=== PATIENT | male | born 1935 ===

== ENCOUNTER 2021-06-16 18:11 | Emergency (ER) | payer OTHER ==
--- OUTSIDE RECORDS SUMMARY | 2021-06-16 18:18 | XMS REPORT | Continuity of Care Document ---
:[address] [facility] t Address [address] [place] [address] Dr. Esteban. [address] [place] [address] Care Team Providers Name Role Phone Blake Mihaela Primary Care Physician QUINTEN, Celeste Attending Clinician Unavailable Quinten AMATO, A Attending Clinician Doctor Unassigned, Name Attending Clinician Unavailable Only, Test Attending Clinician Unavailable Pob, Lab Main Attending Clinician Unavailable QUINTEN, Celeste Admitting Clinician Unavailable Quinten AMATO, A Admitting Clinician Payers Payer Name Policy Type Policy Number Effective Date Expiration Date S katie FLAKITO/TASHA [id number] 2020 00:00:00 [employer] AD[employer] CHOICE PPO Problems This patient has no known problems. Allergies, Adverse Reactions, Alerts Allergy Allergy Status Severity Reaction(s) Onset Inactive Treating Comm ents Source Name Type Date Date Clinician NO KNOWN Drug Active Univers ALLERGIE Class ity of S [facility] Social History Social Habit Start Date Stop Date Quantity Comments Source Exposure to Not sure [facility] SARS-CoV-2 (event) Medica l Branch Tobacco use and 2021-05-20 2021-05-20 Never used [facility] exposure 00:00:00 00:00:00 [facility] Sex Assigned At [birth year] [facility] 00:00:00 00:00:00 [facility] Smoking Status Start Date Stop Date Source Unknown if ever smoked [facility] Never smoker [facility] Medications Ordered Filled Start Stop Current Ordering Indication Dosage Frequency Signature Comments Components Source Medication Medication Date Date Medication? Clinician (SIG) Name Name water for 2020-07 Yes PRN, Univers irrigation 07-22 Starting ity o f irrigation 17:20: on Thu [place] solution 00 05/22/21 Medical at 1120, Branch Until Discontinu ed, Routine, Intra-op water for 2020-07- No PRN, Univers irrigation 07-22 Starting ity of irrigation 17:20: 21:35 [place] solution 00 :56 05/22/21 Medical at 1120, Branch Until Thu05/22/21 at 1535, Routine, Intra-op sodium 2020-07 Yes PRN, Univers chloride 07-22 Starting ity of (NS) 17:19: on Thu [place] injection 05/22/21 Medica l at 1119, Branch Until Discontinu ed, Routine, Intra-op neomycin-po 2020-07 Yes [facility] l[facility]22 Starting ity of amethasone 17:19: on Thu [place] (MAXITROL) 00 05/22/21 Medic al 3.5 at 1119, Branch mg/g-10,000 Until unit/g-0.1 Discontinu % ed, ophthalmic Routine, ointment Intra-op sodium 2020-07- No PRN, Univers chloride 07-22 Starting ity of (NS) 17:19: 21:35 on Thu [place] injection 00 :56 05/22/21 Medica l at 1119, Branch Until Thu05/22/21 at 1535, Routine, Intra-op neomycin-po 2020-07- No PRN, [facility] lymyx[facility] 07-22 Starting ity of amethasone 17:19: 21:35 [place] (MAXITROL[place] 00 :56 05/22/21 Medic al 3.5 at 1119, Branch mg/g-10,000 Until Wed unit/g-0.1 05/22/21 % at 1535, ophthalmic Routine, ointment Intra-op Hyaluronida 2020-07 Yes PRN, Univer s se, Human 07-22 Starting ity of Recomb. 17:18: on Thu [place] (HYLENEX) 00 05/22/21 Medica l injection at 1118, Branch Until Discontinu ed, Routine, Intra-op Hyaluronida 2020-07- No PRN, Unive rs se, Human 07-22 Starting ity o f Recomb. 17:18: 21:35 on Thu (HYLENEX) 00 :56 05/22/21 Medica l injection at 1118, Branch Until Thu05/22/21 at 1535, Routine, Intra-op eye block 2020-07 Yes PRN, Univers syringe 07-22 Starting ity o f mL 17:17: on Thu 00 05/22/21 Medical at 1117, Branch Until Discontinu ed, Intra-op EPINEPHrine 2020-07 Yes PRN, Univer s 1:1,000 (07-22 Starting ity o f mg/mL) 17:17: on Thu (ADRENALIN) 00 05/22/21 Medi fermín injection at 1117, Branch Until Discontinu ed, Routine, Intra-op eye block 2020-07- No PRN, Univers syringe 11 07-22 Starting ity of mL 17:17: 21:35 on Thu 00 :56 05/22/21 Medical at 1117, Branch Until Thu05/22/21 at 1535, Intra-op EPINEPHrine 2020-07- No PRN, Unive rs 1:1,000 (07-22 Starting ity of mg/mL) 17:17: 21:35 on Thu (ADRENALIN) 00 :56 05/22/21 Medi fermín injection at 1117, Branch Until Thu05/22/21 at 1535, Routine, Intra-op DUOVISC 2020-07 Yes PRN, Univers (DUOVISC 07-22 Starting ity of VISCO 17:16: on Thu ELASTIC) 3 00 05/22/21 Medic al %-4 %(0.5 at 1116, Branch mL) 1 % Until (0.55 mL) Discontinu intraocular ed, injection Routine, Intra-op dexamethaso 2020-07 Yes PRN, Univer s ne 07-22 Starting ity of (DECADRON 17:16: on Thu PHOSPHATE) 00 05/22/21 Medic al injection at 1116, Branch Until Discontinu ed, Routine, Intra-op DUOVISC 2020-07- No PRN, Univers (DUOVISC 07-22 Starting ity of VISCO 17:16: 21:35 on Thu [place] ELASTIC) 3 00 :56 05/22/21 Medic al %-4 %(0.5 at 1116, Branch mL) 1 % Until Thu (0.55 mL) 05/22/21 intraocular at 1535, injection Routine, Intra-op dexamethaso 2020-07- No PRN, Unive rs ne 07-22 Starting ity of (DECADRON 17:16: 21:35 on Thu PHOSPHATE) 00 :56 05/22/21 Medic al injection at 1116, Branch Until Thu05/22/21 at 1535, Routine, Intra-op ceFAZolin 2020-07 Yes PRN, Univers (ANCEF) 07-22 Starting ity of injection 17:15: on Thu 00 05/22/21 Medical at 1115, Branch Until Discontinu ed, ANANTH, Intra-op carbachoL 2020-07 Yes PRN, Univers (MIOSTAT) 07-22 Starting ity of 0.01 % 17:15: on Thu intraocular 00 05/22/21 Medi fermín injection at 1115, Branch Until Discontinu ed, Routine, Intra-op ceFAZolin 2020-07- No PRN, Univers (ANCEF) 07-22 Starting ity of injection 17:15: 21:35 on Thu 00 :56 05/22/21 Medical at 1115, Branch Until Thu05/22/21 at 1535, ANANTH, Intra-op carbachoL 2020-07- No PRN, Univers (MIOSTAT) 07-22 Starting ity o f 0.01 % 17:15: 21:35 on Thu intraocular 00 :56 05/22/21 Medi fermín injection at 1115, Branch Until Thu05/22/21 at 1535, Routine, Intra-op balanced 2020-07 Yes PRN, Univers salt irrig 07-22 Starting ity o f soln comb1 17:01: on Thu (BSS PLUS) 00 05/22/21 Medic al ophthalmic at 1101, Branc h solution Until 500 mL bag Discontinu ed, Routine, Intra-op balanced 2020-07- No PRN, Univers salt irrig 07-22 Starting ity of soln comb1 17:01: 21:35 [place] Thu [place] (BSS PLUS) 00 :56 05/22/21 Medic al ophthalmic at 1101, Branc h solution Until Thu 500 mL bag 05/22/21 at 1535, Routine, Intra-op cyclopent 2020-07- No .5mL 0.5 mL, Univ ers 1%-tropic 07-22 Right Eye, ity of 1%-phenyl 17:00: 17:19 ONCE, 1 [place] 2.5%-ketor 00 :00 dose, On Medic al 0.5% Wed Branch ophthalmic 05/22/21 solution at 1100, syringe 0.5 Routine, mL DSU Pre-op lactated 2020-07- No 1000mL at 42 Unive rs ringers IV 07-22 11-17 mL/hr, ity of infusion 17:00: 17:18 1,000 mL, Gustavo as 1,000 mL 00 :00 IV Medical Infusion, Branch ONCE, 1 dose, On Thu05/22/21 at 1100, Routine, DSU Pre-op cyclopent 2020-07- No .5mL 0.5 mL, Univ ers 1%-tropic 07-22 Right Eye, ity of 1%-phenyl 17:00: 17:19 ONCE, 1 [place] 2.5%-ketor 00 :00 dose, On Medic al 0.5% [facility] Branch ophthalmic 05/22/21 solution at 1100, syringe 0.5 Routine, mL DSU Pre-op lactated 2020-07- No 1000mL at 42 Unive rs ringers IV 07-22 11-17 mL/hr, ity of infusion 17:00: 17:18 1,000 mL, Gustavo as 1,000 mL 00 :00 IV Medical Infusion, Branch ONCE, 1 dose, On Thu05/22/21 at 1100, Routine, DSU Pre-op aspirin 81 2020-07 Yes 81mg Take 81 mg U nivers mg chewable 1-17 by mouth ity of tablet 13:35: daily. [address] aspirin 81 2020-07 Yes 81mg Take 81 mg U nivers mg chewable 1-17 by mouth ity of tablet 13:35: daily. [address] aspirin 81 2020-07 Yes 81mg Take 81 mg U nivers mg chewable 1-17 by mouth ity of tablet 13:35: daily. [place] [facility] Branch aspirin 81 2020-07 Yes 81mg Take 81 mg U nivers mg chewable 1-15 by mouth ity of tablet 09:16: daily. [place] [facility] Branch finasteride 2020-07 Yes Univer s 5 mg tablet 1-02 ity of 00:00: [place] [facility] finasteride 2020-07 Yes Univer s 5 mg tablet 1-02 ity of 00:00: [place] [facility] finasteride 2020-07 Yes Univer s 5 mg tablet 1-02 ity of 00:00: [place] [facility] finasteride 2020-07 Yes Univer s 5 mg tablet 1-02 ity of 00:00: [place] [facility] FARXIGA 5 2020-07 Yes Univers mg tablet 0-26 ity of [facility]:00: [place] [facility] Univers mg tablet 0-26 ity of [facility]:00: [place] [facility] 2020-07 Yes Univers mg tablet 0-26 ity of 00:00: [place] [facility] 2020-07 Yes Univers mg tablet 0-26 ity of 00:00: [place] [facility] doxazosin 4 2020-07 Yes Univer s mg tablet 0-15 ity of 00:00: [place] [facility] benazepriL 2020-07 Yes Univers 5 mg tablet 0-15 ity of 00:00: [place] [facility] doxazosin 4 2020-07 Yes Univer s mg tablet 0-15 ity of 00:00: [place] [facility] [place] benazepriL 2020-07 Yes Univers 5 mg tablet 0-15 ity of 00:00: [place] [facility] doxazosin 4 2020-07 Yes Univer s mg tablet 0-15 ity of 00:00: [place] [facility] benazepriL 2020-07 Yes Univers 5 mg tablet 0-15 ity of 00:00: [place] [facility] doxazosin 4 2020-07 Yes Univer s mg tablet 0-15 ity of 00:00: [place] [address] Medical [place] benazepriL 2020-07 Yes Univers 5 mg tablet 0-15 ity of 00:00: [place] [facility] Vital Signs Vital Name Observation Time Observation Value Comments Source Heart rate 2021-05-22 19:16:00 50 /min Universi ty of [facility] Branch Respiratory rate 2021-05-22 19:16:00 14 /min Univ ersity of [facility] Branch Oxygen saturation in 2021-05-22 19:16:00 98 /min University of Arterial blood by [facility] Pulse oximetry Branch Systolic blood 2021-05-22 19:14:00 146 mm[Hg] Univer sity of pressure [facility] Branch Diastolic blood 2021-05-22 19:14:00 91 mm[Hg] Unive rsity of pressure [facility] Body temperature 2021-05-22 19:03:00 36.39 Emily Univ ersity of [facility] Body height 2021-05-20 15:59:00 172.7 cm Universi ty of [facility] Body weight 2021-05-20 15:59:00 68 kg Universi ty of [facility] BMI 2021-05-20 15:59:00 22.80 kg/m2 Universi ty of [facility] Systolic blood 2021-05-22 17:03:00 163 mm[Hg] Univer sity of [facility] Diastolic blood 2021-05-22 17:03:00 76 mm[Hg] Unive rsity of [facility] Heart rate 2021-05-22 17:03:00 55 /min Universi ty of [facility] Body temperature 2021-05-22 17:03:00 36.17 Emily Univ ersity of [facility] Respiratory rate 2021-05-22 17:03:00 21 /min Univ ersity of [facility] Oxygen saturation in 2021-05-22 17:03:00 99 /min University of Arterial blood by [facility] Pulse oximetry Branch Body height 2021-05-20 15:59:00 172.7 cm Universi ty of [place] [facility] Body weight 2021-05-20 15:59:00 68 kg Universi ty of [facility] Branch BMI 2021-05-20 15:59:00 22.80 kg/m2 Universi ty of [facility] Branch Procedures Procedure Date / Time Performing Source Performed Clinician PHACOEMULSIFICATION OF 2021-05-22 Miguel Shipleyer [place] of [place] CATARACT WITH INTRAOCULAR 18:25:00 [facility] LENS IMPLANT POCT GLUCOSE(AGE >30DAYS) 2021-05-22 Sandra Cunningham [facility] 17:22:00 Medical Branch POCT GLUCOSE(AGE >30DAYS) 2021-05-22 Sandra Cunningham [facility] 17:22:00 Medical Branch POCT GLUCOSE (AUTOMATED) 2021-05-22 Miguel Shipley [facility] 17:15:00 Medical Branch POCT GLUCOSE (AUTOMATED) 2021-05-22 Miguel Shipley [facility] 17:15:00 Medical Branch PATIENT QUESTIONNAIRE 2021-05-22 Doctor Unassigned, [facility] 06:01:00 [place] [facility] ASSIGNMENT OF BENEFITS 2021-05-13 Doctor Unassigned, [facility] 16:40:49 [place] [facility] EXTERNAL PROVIDER RECORDS 2021-04-24 Doctor Unassigned, [facility] 05:01:00 [place] [facility] EXTERNAL PROVIDER RECORDS 2021-04-24 Doctor Unassigned, [facility] 05:01:00 [place] [facility] Encounters Start End Encounter Admission Attending Care Care Encounter Source Date/Time Date/Time Type Type Clinicians Facility Department ID 2021-06-05 Outpatient R [facility] OPH [id number] Univers 16:30:41 [facility] 2021-05-22 2021-05-22 Outpatient R [facility] OPH [id number] Univers 10:48:00 13:33:00 [facility] 2021-05-22 2021-05-22 [facility] [id number] Univers 10:48:00 13:33:00 Encounter Miguel QUINTEROS [id number] ity [facility] [id number] [place] SUR[place] [id number] [facility] 071 Branch 2021-05-22 2021-05-22 Surgery [facility] [id number] Univers 12:12:00 12:51:00 Miguel QUINTEROS [id number] ity of [id number] [place] SUR[place]ICAL [id number] [facility] 020 Branch 2021-05-22 2021-05-22 Orders Doctor MATT [id number] Univers 00:00:00 00:00:00 Only Unassigned, DARSHAN [id number] ity of [place] [facility] [id number] [facility] [id number] [facility] 009 Branch 2021-05-21 2021-05-21 Outpatient R [facility] [id number] Univers 08:45:00 08:45:00 [id number] ity [facility] 2021-05-21 2021-05-21 Outpatient R [facility] [id number] Univers 08:45:00 08:45:00 ity of [facility] 2021-05-20 2021-05-20 Outpatient R [facility] [id number] Univers 10:30:00 10:30:00 [id number] ity [facility] 2021-05-20 2021-05-20 Outpatient R QUINTEN [facility] [id number] Univers 10:30:00 10:30:00 MIGUEL cortes [facility] 2021-05-20 2021-05-20 Laboratory Only, Adc Test [facility] [id number] Univers 09:25:46 09:40:46 Only Miguel Shipley [id number] [facility] [id number] [facility] [id number] [facility] [address] [place] 2021-05-13 2021-05-13 Outpatient R QUINTEN [facility] [id number] Univers 11:45:00 11:45:00 MIGUEL cortes [facility] 2021-05-13 2021-05-13 Tax Examiner Birgit, Adc Lab Main [facility] [id number] Univers 10:40:00 10:55:00 Visit Miguel Shipley [id number] 0 ity of [place] [id number] [facility] [id number] In [address] 2021-05-13 2021-05-13 Orders Doctor GUTIERREZ [id number] Univers 00:00:00 00:00:00 Only Unassigned, DARSHAN [id number] ity of [place] [facility] [id number] Gust[place] as [id number] [address] Results Test Description Test Time Test Comments Results Result Comments Source POCT Glucose 2021-05-22 17:22:00 Test Item Value Reference Range Interpretation Comme nts POCT Glu (age>30days) (test code = 3342) 135 mg/dL 70-110 A Lab Interpretation (test code = 44517-3) Abnormal [facility] [id number] 17:22:00 Test Item Value Reference Range Interpretation Comments POCT Glu (age>30days) (test code = 135 mg/dL 70-110 A 3342) Lab Interpretation (test code = Abnormal 97836-2) [facility] GLUCOSE (AUTOMATED)2021-05-22 17:18:13 Test Item Value Reference Range Interpretation Comments POCT GLU (test code = 2115685993) 135 mg/dL 70-110 H Lab Interpretation (test code = Abnormal 24511-2) [facility] GLUCOSE (AUTOMATED)2021-05-22 17:18:13 Test Item Value Reference Range Interpretation Comments POCT GLU (test code = 4583634660) 135 mg/dL 70-110 H Lab Interpretation (test code = Abnormal 97230-4) [facility]
--- NOTE | 2021-06-16 19:07 | RAD REPORT ---
EXAM DESCRIPTION: RAD - Chest Single View - 06/16/2021 6:53 pm CLINICAL HISTORY: SOB COMPARISON: February 2018 TECHNIQUE: AP portable chest image was obtained 06/16/2021 6:53 pm . FINDINGS: Lung volumes are low. No focal lung parenchymal process seen. Hilar regions are normal. He art and vasculature are normal. No measurable pleural effusion and no pneumothorax. No acute bony abn ormality seen. No acute aortic findings suspected. IMPRESSION: No acute cardiopulmonary process. No significant change from comparison study.
[2021-06-16 19:14] LABS: Absolute Lymphocytes (CBC) 0.8 K/uL (0.7-4.9); Basophils % 0.4 % (0-1.3); Lymphocytes % 6.2 % (15.3-44.8); MPV 9.3 fL (7.6-11.3); Protime INR 1.09; RBC Red Blood Cell Count 5.04 M/uL (4.33-5.43)
[2021-06-16 19:45] LABS: Albumin 3.4 g/dL (3.4-5.0); Bilirubin Direct 0.2 mg/dL (0-0.2); Bilirubin Total 0.6 mg/dL (0.2-1.0); Potassium 5.1 mmol/L (3.5-5.1); Protein, Total 7.2 g/dL (6.4-8.2)
[2021-06-16 19:47] LABS: Troponin (Emerg Dept Use Only) 24.1 ng/mL (0.0-0.045)
[2021-06-16] MEDS ORDERED: HEPARIN 5000 UNIT/ML 1 ML VIAL ONE (20:26)
[2021-06-16] MEDS ORDERED: ONDANSETRON 4 MG/2 ML VIAL ONE (20:26)
[2021-06-16] MEDS ORDERED: METOPROLOL TAR 50 MG TAB ONE (20:26)
[2021-06-16] MEDS ORDERED: ASPIRIN 81 MG CHEWABLE TABLET ONE (20:26)
[2021-06-16] MEDS ORDERED: MORPHINE 2 MG/ML SYR ONE (20:26)
[2021-06-16] MEDS ORDERED: HEPARIN/D5W 25,000 UNIT/500 ML BAG IV ONE (20:27)
[2021-06-16] MEDS ORDERED: FAMOTIDINE 20 MG/2 ML VIAL IV ONE (20:27)
[2021-06-16] MEDS ORDERED: CLOPIDOGREL 75 MG TABLET ONE (20:27)
--- NOTE | 2021-06-16 20:32 | ER ---
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 Coronavirus screen: Client presents with at least one sign or symptom that may indicate coronavirus-19. Ebola Screen: Patient negative for fever greater than or equal to 101.5 degrees Fahrenheit, and additional compatible Ebola Virus Disease symptoms Patient denies exposure to infectious person. Patient denies travel to an Ebola-affected area in the 21 days before illness onset. No symptoms or risks identified at this time. Initial Sepsis Screen: Does the patient meet any 2 criteria? No. Patient's initial sepsis screen is negative. Does the patient have a suspected source of infection? No. Patient's initial sepsis screen is negative. Risk Assessment: Do you want to hurt yourself or someone else? Patient reports no desire to harm self or others. Onset of symptoms was June 09, 2021. 18:29 Method Of Arrival: Wheelchair iw 18:29 Acuity: KENZIE 3 iw Historical: - Allergies: 18:32 No Known Allergies; iw - PMHx: 18:31 COPD; Diabetes - NIDDM; Hypertension; Hyperlipidemia; SBO; SMALL BOWEL OBSTRUCTION; iw Gout; - Immunization history:: Client reports receiving the 2nd dose of the Covid vaccine. - Social history:: Smoking status: Patient denies any tobacco usage or history of. Screenin:00 Abuse screen: Denies threats or abuse. Nutritional screening: No deficits noted. bb Tuberculosis screening: No symptoms or risk factors identified. Fall Risk None identified. Assessment: 20:00 General: Appears in no apparent distress. slender, Behavior is calm, cooperative. Pain: bb Denies pain. Neuro: Level of Consciousness is awake, alert, obeys commands, Oriented to person, place, time, situation. Cardiovascular: Capillary refill < 3 seconds Patient's skin is warm and dry. Rhythm is STEMI. Respiratory: Airway is patent Respiratory effort is even, unlabored, Breath sounds are clear bilaterally. GI: Abdomen is non-distended. Derm: Skin is pink, warm \T\ dry. Musculoskeletal: Circulation, motion, and sensation intact. 20:30 Reassessment: Patient is alert, oriented x 3, equal unlabored respirations, skin bb warm/dry/pink. life flight at bedside for transfer of pt to [place], IV site intact, heparin infusing, family at bedside. 20:45 Reassessment: report called to Karthik DICKEY at [place] ED. bb Vital Signs: 18:29 BP 141 / 67; Pulse 96; Resp 16; Temp 98.0; Pulse Ox 98% on R/A; iw 20:12 BP 164 / 77; Pulse 80; Resp 18; Temp 98.2; Pulse Ox 99% ; lt3 20:20 Weight 65.3 kg (M); bb 20:45 BP 149 / 75; Pulse 87; Resp 20 S; Pulse Ox 97% on R/A; bb ED Course: 18:17 Patient arrived in ED. am2 18:18 Deo Lozano MD is Private Physician. am2 18:31 Triage completed. iw 18:33 Arm band placed on. iw 18:45 Initial lab(s) drawn, by me, sent to lab. Inserted saline lock: 22 gauge in right dh3 forearm, using aseptic technique. Blood collected. 18:53 XRAY Chest (1 view) In Process Unspecified. EDMS 20:00 Patient has correct armband on for positive identification. Placed in gown. Bed in low bb position. Call light in reach. Side rails up X2. Adult w/ patient. engine monitor on. Pulse ox on. NIBP on. Warm blanket given. 20:00 No provider procedures requiring assistance completed. bb 20:07 initiated a transfer with Angeli Cloud from [facility]. mw2 20:11 Mayito Moeller MD is Attending Physician. alice 20:13 EKG done, by ED staff, reviewed by Mayito Moeller MD. lt3 20:26 [facility] denied due to capacity. mw2 20:27 initiated a transfer with Fernandez Gonzalez from [facility]. mw2 20:[address] Moeller with Dr. Osborn from [facility]. mw2 20:40 Patient transferred, IV remains in place. bb 20:41 administrative approval given by Fernandez Gonzalez/ patient has been accepted to [address] to the Fitting Supervisor/ Dr. El accepted the patient in transfer/ report to be called to [phone]. 21:06 Brii Mcdonnell, RN is Primary Nurse. bb Administered Medications: 20:30 Drug: Aspirin Chewable Tablet 324 mg Route: PO; bb 21:00 Follow up: Response: No adverse reaction bb 20:30 Drug: PlaVIX (clopidogrel) 300 mg Route: PO; bb 21:00 Follow up: Response: No adverse reaction bb 20:30 Drug: Insulin Regular Human 5 units {Co-Signature: lp1 (Nava Campbell RN).} Route: IVP; bb Site: right forearm; 21:00 Follow up: Response: No adverse reaction bb 20:32 Drug: Lopressor (metoprolol TARTRATE) 50 mg Route: PO; bb 21:00 Follow up: Response: No adverse reaction bb 20:33 Drug: Pepcid (famotidine) 20 mg Route: IVP; Site: right forearm; bb 21:00 Follow up: Response: No adverse reaction bb 20:35 Drug: Zofran (Ondansetron) 4 mg Route: IVP; Site: right forearm; bb 21:00 Follow up: Response: No adverse reaction bb 20:40 Drug: Heparin (CO-Bolus No thrombolytic) - HEParin 60 units/kg {Co-Signature: lp1 cande (Nava Campbell RN).} Route: IVP; Site: right forearm; 21:00 Follow up: Response: No adverse reaction bb 20:41 Drug: Heparin (CO Drip) 12 units/kg/hr - (HEParin 07237 units, D5W 500 ml) bb {Co-Signature: lp1 (Nava Campbell RN).} Route: IV; Rate: calculated rate; Site: right forearm; 21:00 Follow up: IV Status: Infusion continued upon transfer bb 21:02 Not Given (Patient Refused): morphine 2 mg IVP once; (PAIN>8) RASS on ADMN: Combtv4, bb Very Agttd3, Agttd2, Rstlss1, AlertClm0, Drwsy-1, LtSdtn-2, ModSdtn-3, DpSdtn-4, UnArsble-5 x2 06/17 02:52 Not Given (Physician Discretion): LanTUS (insulin glargine) 25 units Sub-Q once bb 02:52 Not Given (Physician Discretion): Lipitor (atorvastatin) 40 mg PO once bb 02:52 Not Given (Physician Discretion): NS 0.9% 500 ml IV at bolus once bb 02:52 Not Given (Physician Discretion): NS 0.9% 1000 ml IV at 125 ml/hr continuous bb Outcome: 06/16 20:31 ER care complete, transfer ordered by . [facility] 20:40 Condition: stable bb 21:10 Transferred by helicopter to [facility], Transfer form completed. X-rays sent bb w/ patient. 21:11 Patient left the ED. bb Signatures: Dispatcher [employer] EDMS Mayito Moeller MD MD cha Ballard, Brenda, RN RN Stephanie Morataya, RN RN iw Soraya Rosas Deanna 3 Marta Mckeon 2 Heather Key 3 Nava Campbell RN lp1 Corrections: (The following items were deleted from the chart) 18:32 18:29 Chief complaint: Patient's son or daughter states: decreased appetite X 1 week, iw didn't eat anything today, SOB today, feels foggy, denies fever or chills, no vomiting or diarrhea, denies urine symptoms iw
--- NOTE | 2021-06-16 20:32 | EDPHYS ---
Physician Documentation [facility] Name: Woodrow Mckeon Age: 85 yrs Sex: Male : 1935 Arrival Date: 06/16/2021 Time: 18:17 Bed 10 Private MD: Deo Lozano ED Physician Mayito Moeller HPI: 06/16 20:21 This 85 yrs old Male presents to ER via Wheelchair with complaints of alice Breathing Difficulty, Decreased Appetite. 20:21 The patient has shortness of breath at rest, with light activity. Onset: The alice symptoms/episode began/occurred this morning. Duration: The symptoms are continuous, and are unchanged since they started. The patient's shortness of breath is aggravated by nothing, is alleviated by nothing. Associated signs and symptoms: Pertinent positives: chest pain, non-productive cough. Severity of symptoms: At their worst the symptoms were mild in the emergency department the symptoms are unchanged. The patient has not experienced similar symptoms in the past. Historical: - Allergies: 18:32 No Known Allergies; iw - PMHx: 18:31 COPD; Diabetes - NIDDM; Hypertension; Hyperlipidemia; SBO; SMALL BOWEL OBSTRUCTION; iw Gout; - Immunization history:: Client reports receiving the 2nd dose of the Covid vaccine. - Social history:: Smoking status: Patient denies any tobacco usage or history of. ROS: 20:23 Constitutional: Negative for fever, chills, and weight loss, Eyes: Negative for injury, alice pain, redness, and discharge, ENT: Negative for injury, pain, and discharge, Neck: Negative for injury, pain, and swelling, Abdomen/GI: Negative for abdominal pain, nausea, vomiting, diarrhea, and constipation, Back: Negative for injury and pain, : Negative for injury, bleeding, discharge, and swelling, MS/Extremity: Negative for injury and deformity, Skin: Negative for injury, rash, and discoloration, Neuro: Negative for headache, weakness, numbness, tingling, and seizure, Psych: Negative for depression, anxiety, suicide ideation, homicidal ideation, and hallucinations, Allergy/Immunology: Negative for hives, rash, and allergies, Endocrine: Negative for neck swelling, polydipsia, polyuria, polyphagia, and marked weight changes, Hematologic/Lymphatic: Negative for swollen nodes, abnormal bleeding, and unusual bruising. 20:23 Cardiovascular: Positive for chest pain, of the anterior aspect of left upper chest and left breast. 20:23 Respiratory: Positive for shortness of breath, at rest. Exam: 20:23 Constitutional: This is a well developed, well nourished patient who is awake, alert, alice and in no acute distress. Head/Face: Normocephalic, atraumatic. Eyes: Pupils equal round and reactive to light, extra-ocular motions intact. Lids and lashes normal. Conjunctiva and sclera are non-icteric and not injected. Cornea within normal limits. Periorbital areas with no swelling, redness, or edema. ENT: Nares patent. No nasal discharge, no septal abnormalities noted. Tympanic membranes are normal and external auditory canals are clear. Oropharynx with no redness, swelling, or masses, exudates, or evidence of obstruction, uvula midline. Mucous membranes moist. Neck: Trachea midline, no thyromegaly or masses palpated, and no cervical lymphadenopathy. Supple, full range of motion without nuchal rigidity, or vertebral point tenderness. No Meningismus. Chest/axilla: Normal chest wall appearance and motion. Nontender with no deformity. No lesions are appreciated. Cardiovascular: Regular rate and rhythm with a normal S1 and S2. No gallops, murmurs, or rubs. Normal PMI, no JVD. No pulse deficits. Respiratory: Lungs have equal breath sounds bilaterally, clear to auscultation and percussion. No rales, rhonchi or wheezes noted. No increased work of breathing, no retractions or nasal flaring. Abdomen/GI: Soft, non-tender, with normal bowel sounds. No distension or tympany. No guarding or rebound. No evidence of tenderness throughout. Back: No spinal tenderness. No costovertebral tenderness. Full range of motion. Male : Normal genitalia with no discharge or lesions. Skin: Warm, dry with normal turgor. Normal color with no rashes, no lesions, and no evidence of cellulitis. MS/ Extremity: Pulses equal, no cyanosis. Neurovascular intact. Full, normal range of motion. Neuro: Awake and alert, GCS 15, oriented to person, place, time, and situation. Cranial nerves II-XII grossly intact. Motor strength 5/5 in all extremities. Sensory grossly intact. Cerebellar exam normal. Normal gait. Psych: Awake, alert, with orientation to person, place and time. Behavior, mood, and affect are within normal limits. Vital Signs: 18:29 BP 141 / 67; Pulse 96; Resp 16; Temp 98.0; Pulse Ox 98% on R/A; iw 20:12 BP 164 / 77; Pulse 80; Resp 18; Temp 98.2; Pulse Ox 99% ; lt3 20:20 Weight 65.3 kg (M); bb 20:45 BP 149 / 75; Pulse 87; Resp 20 S; Pulse Ox 97% on R/A; bb MDM: 20:11 Patient medically screened. alice 20:24 Differential diagnosis: Anemia Bronchitis CHF exacerbation, abnormal EKG, acute alice myocardial infarction, anxiety, coronary artery disease chest wall pain, Cholelithiasis costochondritis, esophagitis, hiatal hernia, pancreatitis, pneumonia, pulmonary embolus, stable angina, unstable angina, Myocardial Infarction pneumonia, pulmonary edema, Pulmonary Embolism Unstable Angina. Antibiotic administration: Not indicated. HEART Score: History: Moderately Suspicious (1), ECG: Significant ST-deviation (2), Age: > or = 65 years (2), Risk Factors: > or = 3 Risk factors for atherosclerotic disease (2), [Hypercholesterolemia] [Hypertension] [DM] [+ Family HX] Troponin: > or = 3 x Normal Limit (2). The patient was given aspirin in the Emergency Department. The patient's Wells Deep Vein Thrombosis Score was calculated as follows: Total Score: 0. This patient was found to be at low risk for a deep vein thrombosis by using the Well's assessment criteria No Risks (0 Pts) Total Score: 0-2 Pts- Low Risk. The patient's pulmonary embolism risk score was calculated as follows: Total Score: 0-2 points. This patient was found to be at low risk for a pulmonary embolism by using the Well's assessment criteria Total Score: 0-2 points. This patient was found to be at low risk for a pulmonary embolism by using the Well's assessment criteria. BRIAN Risk Score: 1 - patient's age is greater or equal to 65 years, 1 - Three or more CAD risk factors, 1- Known CAD, 1 - ASA use in past 7 days, 1 - Recent [<24hrs] Severe Angina, 1 - Elevated Cardiac Markers, 1 - ST deviation >0.5mm, TOTAL SCORE = 7. Immunization status: Pneumococcal vaccine: Influenza vaccine: Data reviewed: vital signs, nurses notes, lab test result(s), EKG, radiologic studies, plain films. Data interpreted: monitor car operator: rate is 80 beats/min, rhythm is regular, Pulse oximetry: on room air is 99 %. Test interpretation: by ED physician or midlevel provider: ECG, plain radiologic studies. 06/16 18:34 Order name: Basic Metabolic Panel 06/16 18:34 Order name: CBC with Diff; Complete Time: 20:15 06/16 18:34 Order name: LFT's 06/16 18:34 Order name: Magnesium iw 06/16 18:34 Order name: NT PRO-BNP 06/16 18:34 Order name: PT-INR; Complete Time: 20:15 06/16 18:34 Order name: Troponin (emerg Dept Use Only) 06/16 18:34 Order name: XRAY Chest (1 view); Complete Time: 20:15 06/16 20:52 Order name: Lipase EDNJ 06/16 18:34 Order name: EKG; Complete Time: 18:35 06/16 18:34 Order name: Cardiac monitoring; Complete Time: 20:13 06/16 18:34 Order name: EKG - Nurse/Tech; Complete Time: 20:13 06/16 18:34 Order name: IV Saline Lock; Complete Time: 18:47 06/16 18:34 Order name: Labs collected and sent; Complete Time: 18:48 06/16 18:34 Order name: O2 Per Protocol; Complete Time: 20:13 06/16 18:34 Order name: O2 Sat Monitoring; Complete Time: 20:13 iw Administered Medications: 20:30 Drug: Aspirin Chewable Tablet 324 mg Route: PO; bb 21:00 Follow up: Response: No adverse reaction bb 20:30 Drug: PlaVIX (clopidogrel) 300 mg Route: PO; bb 21:00 Follow up: Response: No adverse reaction bb 20:30 Drug: Insulin Regular Human 5 units {Co-Signature: lp1 (Nava Campbell RN).} Route: IVP; bb Site: right forearm; 21:00 Follow up: Response: No adverse reaction bb 20:32 Drug: Lopressor (metoprolol TARTRATE) 50 mg Route: PO; bb 21:00 Follow up: Response: No adverse reaction bb 20:33 Drug: Pepcid (famotidine) 20 mg Route: IVP; Site: right forearm; bb 21:00 Follow up: Response: No adverse reaction bb 20:35 Drug: Zofran (Ondansetron) 4 mg Route: IVP; Site: right forearm; bb 21:00 Follow up: Response: No adverse reaction bb 20:40 Drug: Heparin (AK-Bolus No thrombolytic) - HEParin 60 units/kg {Co-Signature: lp1 bb (Nava Campbell RN).} Route: IVP; Site: right forearm; 21:00 Follow up: Response: No adverse reaction bb 20:41 Drug: Heparin (AK Drip) 12 units/kg/hr - (HEParin 52330 units, D5W 500 ml) bb {Co-Signature: lp1 (Nava Campbell RN).} Route: IV; Rate: calculated rate; Site: right forearm; 21:00 Follow up: IV Status: Infusion continued upon transfer bb 21:02 Not Given (Patient Refused): morphine 2 mg IVP once; (PAIN>8) RASS on ADMN: Combtv4, bb Very Agttd3, Agttd2, Rstlss1, AlertClm0, Drwsy-1, LtSdtn-2, ModSdtn-3, DpSdtn-4, UnArsble-5 x2 06/17 02:52 Not Given (Physician Discretion): LanTUS (insulin glargine) 25 units Sub-Q once bb 02:52 Not Given (Physician Discretion): Lipitor (atorvastatin) 40 mg PO once bb 02:52 Not Given (Physician Discretion): NS 0.9% 500 ml IV at bolus once bb 02:52 Not Given (Physician Discretion): NS 0.9% 1000 ml IV at 125 ml/hr continuous bb Disposition Summary: 06/16/21 20:31 Transfer Ordered Transfer Location: [facility] alice Reason: Higher level of care alice Condition: Serious alice Problem: new alice Symptoms: have improved alice Accepting Physician: estrella Stoddard [facility](06/16/21 21:11) bb Diagnosis - ST elevation (STEMI) 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 EDMS EDMS 21:11 20:31 to Richi [facility] alice castellon
[2021-06-16] MEDS ORDERED: INSULIN -REGULAR HUMAN 50 UNIT/0.5 ML ML ONE (20:48)
[2021-06-16 21:18] VITALS: BP 164/77; TEMP 98.2; O2SAT 99
== END 2021-06-16 21:11 | disposition short-term general hospital (02) ==
LOC: ER 18:11
DX: I21.09 ST elevation (STEMI) myocardial infarction involving other coronary artery of anterior wall (principal); E11.22 Type 2 diabetes mellitus with diabetic chronic kidney disease; E11.65 Type 2 diabetes mellitus with hyperglycemia; I12.9 Hypertensive chronic kidney disease with stage 1 through stage 4 chronic kidney disease, or unspecified chronic kidney disease; N18.9 Chronic kidney disease, unspecified; R06.00 Dyspnea, unspecified
CPT/HCPCS: 96365; 93005; 85025; 80048; 36415; 83735; 85610; 80076; 84484; 83690; 83880; 71045; 96375; 99285; J1644 ×2; J2405; J2270

== ENCOUNTER 2021-07-08 19:25 | Inpatient (IN) | payer OTHER ==
--- OUTSIDE RECORDS SUMMARY | 2021-07-08 19:29 | XMS REPORT | Continuity of Care Document ---
:1935 Author Organization [facility] t Address [address] [place] [address] [address]. [address]eb[address] [place] [address] Care Team Providers Name Role Phone Mihaela LLOYD Primary Care Physician Unavailable Celeste ROBERTS Attending Clinician Unavailable DARIAN ROBERTS Attending Clinician Unavailable ALEJANDRA SKELTON Attending Clinician Unavailable Quinten AMATO, Celeste Attending Clinician Doctor Unassigned, Name Attending Clinician Unavailable Only, Test Attending Clinician Unavailable Pob, Lab Main Attending Clinician Unavailable Celeste ROBERTS Admitting Clinician Unavailable DHOBLE Admitting Clinician Unavailable ALEJANDRA SKELTON Admitting Clinician Unavailable Quinten AMATO, Celeste Admitting Clinician Payers Payer Name Policy Type Policy Number Effective Date Expiration Date Pablo wilson FLAKITO/TASHA [id number] 2020 00:00:00 [employer] ADV CHOICE PPO Problems This patient has no known problems. Allergies, Adverse Reactions, Alerts Allergy Allergy Status Severity Reaction(s) Onset Inactive Treating Comm ents Source Name Type Date Date Clinician NO KNOWN Drug Active Univers ALLERGIE Class ity of S [facility] Social History Social Habit Start Date Stop Date Quantity Comments Source Exposure to Not sure [facility] SARS-CoV-2 (event) Medica l Branch Tobacco use and 2021-05-20 2021-05-20 Never used [facility] exposure 00:00:00 00:00:00 [facility] Sex Assigned At [birth year] [facility] 00:00:00 00:00:00 Medical [place] Smoking Status Start Date Stop Date Source Unknown if ever smoked [facility] Branch Never smoker [facility] Medications Ordered Filled Start Stop Current Ordering [...] of (NS) 17:19: on Thu [place] injection 00 05/22/21 Medica l at 1119, Branch Until Discontinu ed, Routine, Intra-op neomycin-po 2020-07 Yes PRN, Univer s lymyxin-dex 07-22 Starting ity of amethasone [...] 1535, Routine, Intra-op neomycin-po 2020-07- No PRN, Unive rs lymyxin-dex 07-22 Starting ity of amethasone 17:19: 21[place]35 [place] ([place]OL[place] 00 :56 05/22/21 Medic al 3.5 at 1119, Branch mg/g-10,000 Until Wed unit/g-0.1 05/22/21 % at 1535, ophthalmic Routine, ointment Intra-op Hyaluronida 2020-07 Yes PRN, Univer s se, Human 07-22 Starting ity of Recomb. 17:18: on Thu (HYLENEX) 00 05/22/21 Medica l injection at 1118, Branch Until Discontinu ed, Routine, Intra-op Hyaluronida 2020-07- No PRN, Unive rs se, Human 07-22 Starting ity o f Recomb. 17:18: 21:35 on Thu (HYLENEX) 00 :56 05/22/21 Medica l injection at 1118, Branch Until Thu05/22/21 at 1535, Routine, Intra-op eye block 2020-07 Yes PRN, Univers syringe 11 07-22 Starting ity o f mL 17:17: on Thu05/22/21 Medical at 1117, Branch Until Discontinu ed, Intra-op EPINEPHrine 2020-07 Yes PRN, Univer s 1:1,000 (07-22 Starting ity o f mg/mL) 17:17: on Thu (ADRENALIN) 05/22/21 Medi fermín injection at 1117, Branch [...] Starting ity of VISCO 17:16: 21:35 on Wed [place] ELASTIC) 3 00 :56 05/22/21 Medic al %-4 %(0.5 at 1116, Branch mL) 1 % Until Thu (0.55 mL) 05/22/21 intraocular at 1535, injection Routine, Intra-op dexamethaso 2020-07- No PRN, Unive rs ne 07-22 Starting ity of (DECADRON 17:16: 21:35 on Thu [place] PHOSPHATE) 00 :56 05/22/21 Medic al injection at 1116, Branch Until Thu05/22/21 at 1535, Routine, Intra-op ceFAZolin 2020-07 Yes PRN, Univers (ANCEF) 07-22 Starting ity of injection 17:15: on Thu [place] 00 05/22/21 Medical at 1115, Branch Until Discontinu ed, ANANTH, Intra-op carbachoL 2020-07 Yes PRN, Univers (MIOSTAT) 07-22 Starting ity of 0.01 % 17:15: on Wed [place] intraocular 00 05/22/21 Medi fermín injection at 1115, Branch Until Discontinu ed, Routine, Intra-op ceFAZolin 2020-07- No PRN, Univers (ANCEF) 07-22 Starting ity of injection 17:15: 21:35 on Wed [place] 00 :56 05/22/21 Medical at 1115, Branch Until Thu05/22/21 at 1535, ANANTH, Intra-op carbachoL 2020-07- No PRN, Univers (MIOSTAT) 07-22 Starting ity o f 0.01 % 17:15: 21:35 on Thu [place] intraocular 00 :56 05/22/21 Medi fermín injection at 1115, Branch Until Thu05/22/21 at 1535, Routine, Intra-op balanced 2020-07 Yes PRN, Univers salt irrig 07-22 Starting ity o f soln comb1 17:01: on Thu [place] (BSS PLUS) 00 05/22/21 Medic al ophthalmic [...] 00 :00 dose, On Medic al 0.5% Thu Branch ophthalmic 05/22/21 solution at 1100, syringe [...] 00 :00 dose, On Medic al 0.5% Thu Branch ophthalmic 05/22/21 solution at 1100, syringe [...] Take 81 mg U nivers mg chewable -17 by mouth ity of tablet 13:35: daily. [address] aspirin 81 2020-07 Yes 81mg Take 81 mg U nivers mg chewable 1-17 by mouth ity of tablet 13:35: daily. [address] aspirin 81 2020-07 Yes 81mg Take 81 mg U nivers mg chewable 1-17 by mouth ity of tablet 13:35: daily. [place] 54 [facility] aspirin 81 2020-07 Yes 81mg Take 81 mg U nivers mg chewable 1-15 by mouth ity of tablet 09:16: daily. [place] 40 [facility] finasteride 2020-07 Yes Univer s 5 mg tablet 1-02 ity of 00:00: [place] [facility] finasteride 2020-07 Yes Univer s 5 mg tablet 102 ity of 00:00: [address] finasteride 2020-07 Yes Univer s 5 mg tablet 1-02 ity of 00:00: [address] finasteride 2020-07 Yes Univer s 5 mg tablet -02 ity of 00:00: [address] FARXIGA 5 2020-07 Yes Univers mg tablet 0-26 ity of 00:00: [address] 5 2020-07 Yes Univers mg tablet 0-26 ity of 00:00: [address] FARGA 5 2020-07 Yes Univers mg tablet 0-26 ity of 00:00: [address] FARXIGA 5 2020-07 Yes Univers mg tablet 0-26 ity of 00:00: [address] Branch doxazosin 4 2020-07 Yes Univer s mg tablet 0-15 ity of 00:00: [address] benazepriL 2020-07 Yes Univers 5 mg tablet 0-15 ity of 00:00: [place] [address] Medical Branch doxazosin 4 2020-07 Yes Univer s mg tablet 0-15 ity of 00:00: [place] [address] Medical Branch benazepriL 2020-07 Yes Univers 5 mg tablet 0-15 ity of 00:00: [place] [address] Medical Branch doxazosin 4 2020-07 Yes Univer s mg tablet 0-15 ity of 00:00: [place] [address] Medical Branch benazepriL 2020-07 Yes Univers 5 mg tablet 0-15 ity of 00:00: [address] doxazosin 4 2020-07 Yes Univer s mg tablet 0-15 ity of 00:00: [place] 00 Medical Branch benazepriL 2020-1 Yes Univers 5 mg tablet 0-15 ity of 00:00: [place] [address] Medical [place] Vital Signs Vital Name Observation Time Observation Value Comments Source Heart rate 2021-05-22 19:16:00 50 /min [facility] [place] [facility] Respiratory rate 2021-05-22 19:16:00 14 /min Univ ersity [facility] [place] [facility] Oxygen saturation in 2021-05-22 19:16:00 98 /min University of Arterial blood by [facility] Pulse oximetry Branch Systolic blood 2021-05-22 19:14:00 146 mm[Hg] Univer sity of pressure [place] [facility] [place] Diastolic blood 2021-05-22 19:14:00 91 mm[Hg] Unive rsity of pressure [facility] Body temperature 2021-05-22 19:03:00 36.39 Emily [facility] [place] [facility] Body height 2021-05-20 15:59:00 172.7 cm [facility] [place] [facility] Body weight 2021-05-20 15:59:00 68 kg [facility] [place] [facility] BMI 2021-05-20 15:59:00 22.80 kg/m2 [facility] [place] [facility] Systolic blood 2021-05-22 17:03:00 163 mm[Hg] Univer sity of pressure [place] [facility] Diastolic blood 2021-05-22 17:03:00 76 mm[Hg] Unive rsity of pressure [facility] Heart rate 2021-05-22 17:03:00 55 /min [facility] [place] [facility] Body temperature 2021-05-22 17:03:00 36.17 Emily [facility] [place] [facility] Respiratory rate 2021-05-22 17:03:00 21 /min Univ [facility] [place] [facility] Oxygen saturation in 2021-05-22 17:03:00 99 /min University of Arterial blood by [facility] Pulse oximetry Branch Body height 2021-05-20 15:59:00 172.7 cm [facility] [place] [facility] Body weight 2021-05-20 15:59:00 68 kg [facility] [place] [facility] BMI 2021-05-20 15:59:00 22.80 kg/m2 [facility] [place] [facility] Procedures Procedure Date / Time Performing Source Performed Clinician PHACOEMULSIFICATION OF 2021-05-22 Miguel Roberts [facility] CATARACT WITH INTRAOCULAR 18:25:00 Medica l Branch LENS IMPLANT POCT GLUCOSE(AGE >30DAYS) 2021-05-22 Sandra Cunningham [facility] 17:22:00 Medical Branch POCT GLUCOSE(AGE >30DAYS) 2021-05-22 Sandra Cunningham [facility] 17:22:00 Medical Branch POCT GLUCOSE (AUTOMATED) 2021-05-22 Miguel Roberts [facility] 17:15:00 Medical Branch POCT GLUCOSE (AUTOMATED) 2021-05-22 Miguel Roberts [facility] 17:15:00 Medical Branch PATIENT QUESTIONNAIRE 2021-05-22 Doctor Unassigned, [facility] 06:01:00 [place] [facility] ASSIGNMENT OF BENEFITS 2021-05-13 Doctor Unassigned, [facility] 16:40:49 [place] [facility] EXTERNAL PROVIDER RECORDS 2021-04-24 Doctor Unassigned, [facility] 05:01:00 [place] [facility] EXTERNAL PROVIDER RECORDS 2021-04-24 Doctor Unassigned, [facility] 05:01:00 [place] [facility] Encounters Start End Encounter Admission Attending Care Care Encounter Source Date/Time Date/Time Type Type Clinicians Facility Department ID 2021-06-05 Outpatient Gianni ROBERTS [facility] OPH [id number] Univers 16:30:41 [facility] 2021-06-16 2021-06-21 Inpatient U QUINTEN [facility] CAR [id number] [facility] 23:14:00 17:50:00 GWEN 2021-06-16 2021-06-16 Outpatient NAFISA [facility] BRAYAN [id number] [facility] 20:35:00 23:59:00 MOJGAN 2021-05-22 2021-05-22 Outpatient R QUINTEN [facility] OPH [id number] Univers 10:48:00 13:33:00 MIGUEL [facility] 2021-05-22 2021-05-22 [facility] [id number] Univers 10:48:00 13:33:00 Encounter Miguel QUINTEROS [id number] [facility] [id number] [id number] [facility] 071 Branch 2021-05-22 2021-05-22 [facility] [id number] Univers 12:12:00 12:51:00 Miguel QUINTEROS [id number] ity [facility] [id number] [id number] [facility] 020 Branch 2021-05-22 2021-05-22 Orders Doctor MATT [id number] Univers 00:00:00 00:00:00 Only Unassigned, DARSHAN [id number] [facility] 4.2.7.2.686 Gustavo as [id number] [facility] 009 Branch 2021-05-21 2021-05-21 Outpatient R [facility] [id number] Univers 08:45:00 08:45:00 [id number] ity [facility] 2021-05-21 2021-05-21 Outpatient R [facility] [id number] Univers 08:45:00 08:45:00 ity [facility] 2021-05-20 2021-05-20 Outpatient R [facility] [id number] Univers 10:30:00 10:30:00 [id number] [facility] 2021-05-20 2021-05-20 [facility] [id number] Univers 10:30:00 10:30:00 MIGUEL [facility] 2021-05-20 2021-05-20 Laboratory Only, Adc Test [facility] [id number] Univers 09:25:46 09:40:46 Only Miguel Roberts [id number] 0 ity of [facility] [id number] [id number] [facility] 353 Branch 2021-05-13 2021-05-13 [facility] [id number] Univers 11:45:00 11:45:00 MIGUEL [facility] 2021-05-13 2021-05-13 Crystalizer Operator Birgit, Qamar Lab Main [facility] [id number] [facility] 10:40:00 10:55:00 Visit Miguel Roberts [id number] 0 ity of [id number] PROF[place] [id number] [place] dical NAL 353 [facility] 2021-05-13 2021-05-13 Orders Doctor MATT [id number] Univers 00:00:00 00:00:00 Only Unassigned, DARSHAN [id number] ity of [place] [facility] [id number] Gustavo as [id number] [facility] 009 [place] Results Test Description Test Time Test Comments Results Result Comments Source POCT Glucose 2021-05-22 17:22:00 Test Item Value Reference Range Interpretation Comme nts POCT Glu (age>30days) (test code = 3342) 135 mg/dL 70-110 A Lab Interpretation (test code = 72285-2) Abnormal [facility] [id number] 17:22:00 Test Item Value Reference Range Interpretation Comments POCT Glu (age>30days) (test code = 135 mg/dL 70-110 A 3342) Lab Interpretation (test code = Abnormal 72109-0) [facility] GLUCOSE (AUTOMATED)2021-05-22 17:18:13 Test Item Value Reference Range Interpretation Comments POCT GLU (test code = 4861423710) 135 mg/dL 70-110 H Lab Interpretation (test code = Abnormal 37535-5) [facility] GLUCOSE (AUTOMATED)2021-05-22 17:18:13 Test Item Value Reference Range Interpretation Comments POCT GLU (test code = 6566290470) 135 mg/dL 70-110 H Lab Interpretation (test code = Abnormal 64995-2) [facility]
[2021-07-08 19:56] LABS: Absolute Lymphocytes (CBC) 1.2 K/uL (0.7-4.9); Hematocrit 34.3 % (39.6-49.0); MPV 8.8 fL (7.6-11.3); RBC Red Blood Cell Count 3.84 M/uL (4.33-5.43)
[2021-07-08 19:59] LABS: Protime INR 1.19
--- NOTE | 2021-07-08 20:19 | RAD REPORT ---
EXAM DESCRIPTION: RAD - Chest Single View - 07/08/2021 8:13 pm CLINICAL HISTORY: SOB Chest pain. COMPARISON: Chest Single View dated 06/16/2021; Chest Pa And Lat (2 Views) dated 02/25/2018; Chest Si ngle View dated 08/23/2017; Chest Single View dated 11/25/2016 FINDINGS: Portable technique limits examination quality. Mild interstitial opacities likely represent mild interstitial viral infection. The heart is normal i n size. No displaced fractures.
[2021-07-08 21:06] LABS: Blood Morphology Comment NOTED (NOT SEEN); Ovalocytes 1+; Platelet Estimate ADEQ
[2021-07-08 21:33] LABS: Albumin 2.8 g/dL (3.4-5.0); Bilirubin Direct 0.1 mg/dL (0-0.2); Bilirubin Total 0.4 mg/dL (0.2-1.0); Magnesium 2.1 mg/dL (1.8-2.4); Potassium 4.8 mmol/L (3.5-5.1); Protein, Total 6.9 g/dL (6.4-8.2); Troponin (Emerg Dept Use Only) 0.39 ng/mL (0.0-0.045)
--- NOTE | 2021-07-08 22:50 | ER ---
Nurse's Notes [facility] Name: Woodrow Mckeon Age: 85 yrs Sex: Male : 1935 Arrival Date: 07/08/2021 Time: 19:30 Bed 5 Private MD: Diagnosis: Acute systolic (congestive) heart failure;Subsequent non-ST elevation (NSTEMI) myocardial infarction;Acute kidney failure, unspecified Presentation: 07/08 19:33 Chief complaint: Patient's son or daughter states: diff breathing, nausea, fatigue, iw lack of appetite, no energy, doesn't feel right, started today , had a heart attack on 06-16-21 and had to be flown out but they could not place stents bc of his kidney function, they are treating with meds right now, has five blockages, sees Dr. Gibson. Coronavirus screen: Client presents with at least one sign or symptom that may indicate coronavirus-19. Ebola Screen: Patient negative for fever greater than or equal to 101.5 degrees Fahrenheit, and additional compatible Ebola Virus Disease symptoms Patient denies exposure to infectious person. Patient denies travel to an Ebola-affected area in the 21 days before illness onset. No symptoms or risks identified at this time. Initial Sepsis Screen: Does the patient meet any 2 criteria? No. Patient's initial sepsis screen is negative. Does the patient have a suspected source of infection? No. Patient's initial sepsis screen is negative. Risk Assessment: Do you want to hurt yourself or someone else? Patient reports no desire to harm self or others. Onset of symptoms was July 08, 2021. 19:33 Method Of Arrival: Wheelchair iw 19:33 Acuity: KENZIE 2 iw Triage Assessment: 22:25 General: Appears in no apparent distress. Behavior is calm, cooperative. Respiratory: tw5 Reports shortness of breath Onset: The symptoms/episode began/occurred gradually, the patient has mild shortness of breath. Historical: - Allergies: 19:35 No Known Allergies; iw - Home Meds: 19:35 aspirin 81 mg Oral chew 1 tab once daily [Active]; atorvastatin 80 mg oral tab 1 tab iw once daily [Active]; carvedilol 3.125 mg oral tab 1 tab 2 times per day [Active]; clopidogrel 75 mg oral tab 1 tab once daily [Active]; hydralazine 25 mg Oral tab three times a day [Active]; Novolin 70/30 InnoLet Insulin 100 unit/mL (70-30) Sub-Q inpn [Active]; isosorbide dinitrate 10 mg Oral tab 1 tab 2 times per day [Active]; Farxiga 5 mg oral tab 1 tab once daily [Active]; doxazosin 4 mg oral tab 1 tab once daily [Active]; finasteride 5 mg oral tab 1 tab once daily [Active]; - PMHx: 19:35 COPD; Diabetes - NIDDM; Gout; Hyperlipidemia; Hypertension; SBO; iw - PSHx: 19:35 bowel resection; skin cancer removed; iw - Immunization history:: Client reports receiving the 2nd dose of the Covid vaccine, moderna. - Social history:: Smoking status: Patient denies any tobacco usage or history of. Screenin:23 Abuse screen: Denies threats or abuse. Denies injuries from another. Nutritional tw5 screening: No deficits noted. Tuberculosis screening: No symptoms or risk factors identified. Fall Risk No fall in past 12 months (0 pts). Secondary diagnosis (15 points) No IV (0 pts). Ambulatory Aid-. Assessment: 22:20 General: Brandon [phone]. Pain: Denies pain. tw5 22:23 Cardiovascular: Heart tones S1 S2 present Capillary refill < 3 seconds is brisk in tw5 bilateral fingers Rhythm is regular. Respiratory: Airway is patent Trachea midline Respiratory effort is even, unlabored, Respiratory pattern is regular, Breath sounds are clear bilaterally. 07/09 01:23 Reassessment: Patient appears in no apparent distress at this time. No changes from tw5 previously documented assessment. Patient and/or family updated on plan of care and expected duration. Pain level reassessed. General: Appears in no apparent distress. Behavior is calm, cooperative, appropriate for age. 03:17 Reassessment: Patient appears in no apparent distress at this time. No changes from tw5 previously documented assessment. Vital Signs: 07/08 19:33 BP 132 / 69; Pulse 76; Resp 16; Temp 97.9; Pulse Ox 98% on R/A; Weight 67.13 kg; Height iw 5 ft. 8 in. (172.72 cm); 22:23 BP 180 / 84; Pulse 65; Resp 14; Pulse Ox 99% on R/A; tw5 07/09 01:23 BP 157 / 88; Pulse 68; Resp 18; Pulse Ox 97% on R/A; tw5 03:17 BP 167 / 85; Pulse 70; Resp 14; Pulse Ox 100% on R/A; tw5 07/08 19:33 Body Mass Index 22.50 (67.13 kg, 172.72 cm) ED Course: 07/08 19:30 Patient arrived in ED. ja2 19:35 Triage completed. iw 19:38 Arm band placed on. iw 20:14 XRAY Chest (1 view) In Process Unspecified. EDMS 22:06 Matt Horn PA is PHCP. jr8 22:06 Ze Pride MD is Attending Physician. jr8 22:18 Kitty Jason is Primary Nurse. tw5 22:19 Basic Metabolic Panel Sent. tw5 22:23 Awaiting lab results. tw5 22:23 Patient has correct armband on for positive identification. Placed in gown. Bed in low tw5 position. Call light in reach. Side rails up X2. Adult w/ patient. quality assurance monitor on. Pulse ox on. NIBP on. Door closed. Noise minimized. Lights dimmed. Moved to private room. Warm blanket given. Verbal reassurance given. 22:23 COVID swab sent to lab. Inserted saline lock: 20 gauge in left antecubital area, using tw5 aseptic technique. 22:47 Deo Lozano MD is Hospitalizing Provider. jr8 07/09 01:23 Appears to be sleeping. tw5 07:22 Primary Nurse role handed off by Kitty Jason bp 07:22 Wali Esqueda, RN is Primary Nurse. bp Administered Medications: No medications were administered Outcome: 07/08 22:49 Decision to Hospitalize by Provider. jr8 07/09 09:55 Patient left the ED. bp Signatures: Dispatcher [employer] EDSC Stephanie Kim, NOBLE RN Matt Horn PA PA jr8 Wali Esqueda, RN RN Sanjuana Mejia Tiffany tw5 Corrections: (The following items were deleted from the chart) 07/08 22:25 22:25 PMHx: SMALL BOWEL OBSTRUCTION; tw5 tw5
--- NOTE | 2021-07-08 22:50 | EDPHYS ---
Physician Documentation [facility] Name: Woodrow Mckeon Age: 85 yrs Sex: Male : 1935 Arrival Date: 07/08/2021 Time: 19:30 Bed 5 Private MD: ED Physician Ze Pride HPI: 07/08 22:41 This 85 yrs old Male presents to ER via Wheelchair with complaints of Breathing jr8 Difficulty, High Blood Pressure, Nausea. 22:41 This is an 85-year-old male patient with a history of myocardial infarction with jr8 multivessel disease that was seen a couple weeks ago at [place] for acute myocardial infarction. Patient has been put on oral medication for medical management at this time as he is not a candidate for open heart surgery. Family stated that he had been doing well over the past couple weeks recovering. Within the last couple days he has had nausea with decreased appetite and increased difficulty breathing. Patient status the point now where even small movements around the house is causing him difficulty breathing. Denies fevers, cough, congestion.. Historical: - Allergies: 19:35 No Known Allergies; iw - Home Meds: 19:35 aspirin 81 mg Oral chew 1 tab once daily [Active]; atorvastatin 80 mg oral tab 1 tab iw once daily [Active]; carvedilol 3.125 mg oral tab 1 tab 2 times per day [Active]; clopidogrel 75 mg oral tab 1 tab once daily [Active]; hydralazine 25 mg Oral tab three times a day [Active]; Novolin 70/30 InnoLet Insulin 100 unit/mL (70-30) Sub-Q inpn [Active]; isosorbide dinitrate 10 mg Oral tab 1 tab 2 times per day [Active]; Farxiga 5 mg oral tab 1 tab once daily [Active]; doxazosin 4 mg oral tab 1 tab once daily [Active]; finasteride 5 mg oral tab 1 tab once daily [Active]; - PMHx: 19:35 COPD; Diabetes - NIDDM; Gout; Hyperlipidemia; Hypertension; SBO; iw - PSHx: 19:35 bowel resection; skin cancer removed; iw - Immunization history:: Client reports receiving the 2nd dose of the Covid vaccine, moderna. - Social history:: Smoking status: Patient denies any tobacco usage or history of. ROS: 22:41 Eyes: Negative for injury, pain, redness, and discharge, ENT: Negative for injury, jr8 pain, and discharge, Neck: Negative for injury, pain, and swelling, Cardiovascular: Negative for chest pain, palpitations, and edema, Back: Negative for injury and pain, MS/Extremity: Negative for injury and deformity, Skin: Negative for injury, rash, and discoloration, Neuro: Negative for headache, weakness, numbness, tingling, and seizure. 22:41 Respiratory: Positive for dyspnea on exertion, shortness of breath, Negative for cough. 22:41 Abdomen/GI: Positive for nausea, Negative for abdominal pain, vomiting, diarrhea. Exam: 22:41 Eyes: Pupils equal round and reactive to light, extra-ocular motions intact. Lids and jr8 lashes normal. Conjunctiva and sclera are non-icteric and not injected. Cornea within normal limits. Periorbital areas with no swelling, redness, or edema. ENT: Nares patent. No nasal discharge, no septal abnormalities noted. Tympanic membranes are normal and external auditory canals are clear. Oropharynx with no redness, swelling, or masses, exudates, or evidence of obstruction, uvula midline. Mucous membranes moist. Neck: Trachea midline, no thyromegaly or masses palpated, and no cervical lymphadenopathy. Supple, full range of motion without nuchal rigidity, or vertebral point tenderness. No Meningismus. Cardiovascular: Regular rate and rhythm with a normal S1 and S2. No gallops, murmurs, or rubs. Normal PMI, no JVD. No pulse deficits. Respiratory: Lungs have equal breath sounds bilaterally, clear to auscultation and percussion. No rales, rhonchi or wheezes noted. No increased work of breathing, no retractions or nasal flaring. Abdomen/GI: Soft, non-tender, with normal bowel sounds. No distension or tympany. No guarding or rebound. No evidence of tenderness throughout. Back: No spinal tenderness. No costovertebral tenderness. Full range of motion. Skin: Warm, dry with normal turgor. Normal color with no rashes, no lesions, and no evidence of cellulitis. MS/ Extremity: Pulses equal, no cyanosis. Neurovascular intact. Full, normal range of motion. Neuro: Awake and alert, GCS 15, oriented to person, place, time, and situation. Cranial nerves II-XII grossly intact. Motor strength 5/5 in all extremities. Sensory grossly intact. Vital Signs: 19:33 BP 132 / 69; Pulse 76; Resp 16; Temp 97.9; Pulse Ox 98% on R/A; Weight 67.13 kg; Height iw 5 ft. 8 in. (172.72 cm); 22:23 BP 180 / 84; Pulse 65; Resp 14; Pulse Ox 99% on R/A; tw5 07/09 01:23 BP 157 / 88; Pulse 68; Resp 18; Pulse Ox 97% on R/A; tw5 03:17 BP 167 / 85; Pulse 70; Resp 14; Pulse Ox 100% on R/A; tw5 07/08 19:33 Body Mass Index 22.50 (67.13 kg, 172.72 cm) iw MDM: 07/08 22:06 Patient medically screened. jr8 22:41 Data reviewed: vital signs, nurses notes, lab test result(s), EKG, radiologic studies, jr8 plain films. Data interpreted: Pulse oximetry: on room air is 99 %. Interpretation: normal. Counseling: I had a detailed discussion with the patient and/or guardian regarding: the historical points, exam findings, and any diagnostic results supporting the discharge/admit diagnosis, lab results, radiology results, the need for further work-up and treatment in the hospital. ED course: Spoke with Dr. Lozano who will see and admit patient. 07/08 19:39 Order name: Basic Metabolic Panel iw 07/08 19:39 Order name: CBC with Diff; Complete Time: 22:06 iw 07/08 19:39 Order name: LFT's; Complete Time: 22:07/08 19:39 Order name: Magnesium; Complete Time: 22:06 07/08 19:39 Order name: NT PRO-BNP; Complete Time: 22:06 07/08 19:39 Order name: PT-INR; Complete Time: 22:06 07/08 19:39 Order name: Troponin (emerg Dept Use Only); Complete Time: 22:06 iw 07/08 19:39 Order name: XRAY Chest (1 view); Complete Time: 22:06 07/08 19:39 Order name: EKG; Complete Time: 19:40 iw 07/08 19:40 Order name: Basic Metabolic Panel; Complete Time: 22:06 EDMS 07/08 20:32 Order name: Manual Differential; Complete Time: 22:06 EDMS 07/08 22:10 Order name: SARS-COV-2 RT PCR (Document "Date of Onset" if Symptomatic); Complete Time: jr8 23:39 07/09 04:49 Order name: Troponin I EDMS 07/09 07:37 Order name: Troponin I EDMS 07/08 19:39 Order name: Cardiac monitoring; Complete Time: 22:19 iw 07/08 19:39 Order name: EKG - Nurse/Tech; Complete Time: 22:19 iw 07/08 19:39 Order name: IV Saline Lock; Complete Time: 22:19 iw 07/08 19:39 Order name: Labs collected and sent; Complete Time: 22:19 iw 07/08 19:39 Order name: O2 Per Protocol; Complete Time: 22:19 iw 07/08 19:39 Order name: O2 Sat Monitoring; Complete Time: 22:19 iw Administered Medications: No medications were administered Disposition: 07/09 05:52 Co-signature as Attending Physician, Ze Pride MD. [facility] Disposition Summary: 07/08/21 22:49 Hospitalization Ordered Hospitalization Status: Inpatient Admission jr8 Provider: Deo Lozano Condition: Stable jr8 Problem: new jr8 Symptoms: have improved jr8 Bed/Room Type: Standard 8 Location: Telemetry/MedSurg (Inpatient)(07/09/21 07:50) dw Room Assignment: 219(07/09/21 07:50) dw Diagnosis - Acute systolic (congestive) heart failure jr8 - Subsequent non-ST elevation (NSTEMI) myocardial infarction jr8 - Acute kidney failure, unspecified jr8 Forms: - Medication Reconciliation Form jr8 - SBAR form jr8 Signatures: Dispatcher [employer] EDME More Aponte RN RN mw Woody, Diana, RN RN dw Lam, Pin, MD MD pkStephanie Tirado RN RN iw Roszak, Josh, PA PA jr8 Kitty Jason tw5 Corrections: (The following items were deleted from the chart) 07/08 22:25 22:25 PMHx: SMALL BOWEL OBSTRUCTION; tw5 tw5 07/09 00:25 07/08 22:49 Telemetry/MedSurg (Inpatient) jr8 mw 07/09 00:25 01 22:49 jr8 mw 07/09 07:50 00:25 [facility] 07:50 00:25 [facility] [place]
[2021-07-09] MEDS: ONDANSETRON 4 MG/2 ML VIAL IV PRN ×2 (10:24→17:57)
--- NOTE | 2021-07-09 11:16 | EKG ---
Test Date: 2021-07-08 Test Time: 19:59:20 Learning Disabilities Resource Teacher: ERICK MEASUREMENT RESULTS: Intervals: Rate: 69 RI: 152 QRSD: 98 QT: 450 QTc: 482 Jamul: P: 59 RI: 152 QRS: -39 T: 85 INTERPRETIVE STATEMENTS: Normal sinus rhythm Left axis deviation Low voltage QRS Inferior infarct, age undetermined Possible Anterolateral infarct, age undetermined Abnormal ECG Compared to ECG 06/16/2021 20:03:11 Left-axis deviation now present Myocardial infarct finding still present Electronically Signed On 07-09-21 11:14:10 RAGMAN by Magdi Ayoub
--- NOTE | 2021-07-09 15:59 | P.HP ---
Certification for Inpatient Patient admitted to: Inpatient With expected LOS: >2 Midnights Practitioner: I am a practitioner with admitting privileges, knowledge of patient current condition, hospital course, and medical plan of care. Services: Services provided to patient in accordance with Admission requirements found in Title 42 Section 412.3 of the Code of Federal Regulations Patient History Date of Service: 07/09/21 Primary Care Provider: Blake Reason for admission: Chest pain History of Present Illness: Office patient of [employer]. He recently had a NSTEMI Treated with stenting in [facility]. That was 06/16/21. He required a ballon assist device for a few days on that admission. He was experiencing chest pain and sob over the weekend. Therefore came to the er Was found to have a mild troponin leak Very elevated bnp. His creatine is also elevated to 3. His baseline is around 1.6 He has been set up to see Dr. Davis in the past Allergies No Known Allergies Allergy (Verified 10/20/16 23:43) Home Medications: Benazepril HCl [Lotensin] 5 mg PO DAILY 09/26/16 Doxazosin [Cardura*] 2 mg PO BEDTIME 09/26/16 Fluticasone Propionate [Flonase Allergy Relief] 1 spray IH PRN 09/26/16 Lovastatin 40 mg PO BEDTIME 09/26/16 allopurinoL [Allopurinol] 100 mg PO DAILY 09/26/16 Mirtazapine [Remeron*] 7.5 mg PO DAILY 08/23/17 - Past Medical/Surgical History Has patient received pneumonia vaccine in the past: Yes Diabetic: Yes -: niddm dm -: gout -: htn -: hld -: copd -: born with one kidney -: hernia repair -: intestinal blockage repair -: heart cath 06/16/21 - Family History Mother -: Heart disease, Hypertension, Cancer Father -: Hypertension Sister -: Diabetes - Social History Smoking Status: Never smoker Alcohol use: No CD- Drugs: No Caffeine use: Yes Place of Residence: Home Review of Systems Respiratory: Shortness of Breath Cardiovascular: Chest Pain Physical Examination - Vital Signs Temperature: 97.3 F Blood Pressure: 177/88 Pulse: 63 Respirations: 14 Pulse Ox (%): 97 - Physical Exam General: Alert, In no apparent distress HEENT: Atraumatic, PERRLA, Mucous membr. moist/pink, EOMI, Sclerae nonicteric Neck: Supple, 2+ carotid pulse no bruit, No LAD, Without JVD or thyroid abnormality Respiratory: Clear to auscultation bilaterally, Normal air movement Cardiovascular: Regular rate/rhythm, Normal S1 S2 Gastrointestinal: Normal bowel sounds, No tenderness Musculoskeletal: No tenderness Integumentary: No rashes Neurological: Normal gait, Normal speech, Normal strength at 5/5 x4 extr, Normal tone, Normal affect Lymphatics: No axilla or inguinal lymphadenopathy - Studies Laboratory Data (last 24 hrs) 07/08/21 19:45: PT 13.7 H, INR 1.19 07/08/21 19:45: WBC 10.90, Hgb 11.6 L, Hct 34.3 L, Plt Count 183 07/08/21 19:45: Sodium 137, Potassium 4.8, BUN 57 H, Creatinine 3.08 H, Glucose 169 H, Magnesium 2.1, Total Bilirubin 0.4, AST 12 L, ALT 20, Alkaline Phosphatase 71 Assessment and Plan - Problems (Diagnosis) (1) Chest pain Onset Date: 08/24/17 Current Visit: No Status: Acute Plan: will consult Dr. Issa. Check an echo Currently no chest pain. Mild troponin leak. Considering his creatine this in no significant. Will await cardiology input Qualifiers: Ischemic chest pain type: stable angina pectoris (2) Acute renal failure Current Visit: Yes Status: Chronic Plan: Will consult Dr. Davis. Will hold off on diuresis. There is some increased interstial markings. However he has no clinical signs of fluid overl oad Qualifiers: Acute renal failure type: unspecified Qualified Code(s): N17.9 - Acute kidney failure, unspecified (3) Type 2 diabetes mellitus without complications Current Visit: Yes Status: Acute Plan: hold farxiga. Will cover with sliding scale. Qualifiers: Diabetes mellitus shelter insulin use: with intermediate teacher use Qualified Code(s): E11.9 - Type 2 diabetes mellitus without complications; Z79.4 - long-term (current) use of insulin (4) Hyperlipidemia Onset Date: 09/29/16 Current Visit: No Status: Chronic Plan: restart his home statins Qualifiers: (5) Hypertension Onset Date: 09/29/16 Current Visit: No Status: Chronic Plan: restart carvedilol, and isosoride. With hydralazine for prn usage Discharge Plan: Home Plan to discharge in: 24 Hours - Advance Directives Does patient have a Living Will: Yes Does patient have a Durable POA for Healthcare: Yes - Code Status/Comfort Care Code Status Assessed: No Physician Review: Patient Assessed, Agree with Above Assessment and Plan Critical Care: No Time Spent Managing Pts Care (In Minutes): 45
[2021-07-09] MEDS: carvediloL 3.125 MG TAB PO SCH (17:13)
[2021-07-09] MEDS: HYDRALAZINE HCL 20 MG/ML VIAL IV PRN (17:57)
[2021-07-09] MEDS: ATORVASTATIN 80 MG TAB PO SCH (21:35)
[2021-07-09] MEDS: ISOSORBIDE DINIT 5 MG TAB PO SCH (21:35)
[2021-07-09] MEDS: DOXAZOSIN 4 MG TAB PO SCH (21:36)
[2021-07-10] MEDS: HYDRALAZINE HCL 20 MG/ML VIAL IV PRN (03:59)
[2021-07-10] MEDS: carvediloL 3.125 MG TAB PO SCH ×2 (05:40→17:00)
[2021-07-10 05:53] LABS: Hematocrit 32.3 % (39.6-49.0); Lymphocytes % 9.5 % (15.3-44.8); MPV 9.1 fL (7.6-11.3); RBC Red Blood Cell Count 3.67 M/uL (4.33-5.43)
[2021-07-10 06:00] LABS: Albumin 2.5 g/dL (3.4-5.0); Bilirubin Total 0.5 mg/dL (0.2-1.0); Magnesium 2.2 mg/dL (1.8-2.4); Potassium 4.8 mmol/L (3.5-5.1); Protein, Total 6.2 g/dL (6.4-8.2)
--- NOTE | 2021-07-10 07:36 | CON ---
Date of Consultation: 07/09/2021 Reason For Consultation: Congestive heart failure. History Of Present Illness: Mr. Mckeon is 85, has many medical problems including COPD, diabetes, hypertension, dyslipidemia, gout, and small bowel obstruction in the past. Came in with shortness o f breath and elevated troponin of 0.39. His BNP was 32,116. Chest x-ray showed possible pneumonia. His creatinine was 3.08. He did not have any chest pain. No nausea or vomiting. No diaphoresis bu t has had PND, orthopnea, pedal edema. Denied any palpitation or syncope. Past Medical History: As stated above. Allergies: NONE. Review of Systems: Negative. Social History: Negative. Family History: Noncontributory. Medications: At home include insulin, hydralazine, aspirin, Lipitor, Coreg, Plavix, Imdur, Lotensin, Cardura, lovastatin, and allopurinol. Physical Examination: Vital Signs: Stable. He was afebrile. He was in a sinus rhythm. HEENT: Negative. Neck: Supple with no bruit. Chest: Reveals some rales at both bases. Cardiac: Revealed a regular rhythm and rate with an S4 gallop. Abdomen: Benign. Extremities: Revealed 1+ edema. Diagnostic Data: As stated earlier. Impression And Plan: 1.Congestive heart failure, most likely diastolic. Echocardiogram is pending. Continue present reg imen. I think he needs to be on low-dose Lasix. 2.Chronic obstructive pulmonary disease. He needs to be on inhalers. 3.Hypertension. He needs to continue his regular medication. 4.Dyslipidemia. He is to continue Lipitor. 5.Gout. 6.History of small bowel obstruction. 7.Elevated troponin and BNP secondary to demand ischemia from congestive heart failure and possibly chronic obstructive pulmonary disease exacerbation. 8.Lastly, he may have an infection on the chest x-ray. He needs to have antibiotics. His creatinin e is 3.08. He needs to have Nephrology consultation. He is not taking any nephrotoxic drugs, but we just have to watch his creatinine while we diurese him gently. I will discuss the case further with Dr. Lozano. MARITZA/DIDIER Voice ID: [id number] Report ID: [id number]
[2021-07-10] MEDS: FINASTERIDE 5 MG TAB PO SCH (08:15)
[2021-07-10] MEDS: CLOPIDOGREL 75 MG TABLET PO SCH (08:15)
[2021-07-10] MEDS: ISOSORBIDE DINIT 5 MG TAB PO SCH ×3 (08:15→20:28)
--- NOTE | 2021-07-10 11:36 | ECHO ---
HEIGHT: 5 ft 8 in WEIGHT: 147 lb 0 oz DATE OF STUDY: 07/10/[address]: Magdi Ayoub MD 2-DIMENSIONAL: YES M.MODE: YES DOPPLER: YES COLOR FLOW: YES TDS: PORTABLE: DEFINITY: BUBBLE STUDY: DIAGNOSIS: CONGESTIVE HERAT FAILURE CARDIAC HISTORY: CATHERIZATION: YES SURGERY: NO PROSTHETIC VALVE: NO PACEMAKER: NO MEASUREMENTS (cm) DIASTOLIC (NORMALS) SYSTOLIC (NORMALS) IVSd 1.2 (0.6-1.2) LA Diam 3.3 (1.9-4.0) LVEF 75% LVIDd 2.8 (3.5-5.7) LVIDs 1.6 (2.0-3.5) %FS 43% LVPWd 1.2 (0.6-1.2) Ao Diam 2.5 (2.0-3.7) 2 DIMENSIONAL ASSESSMENT: RIGHT ATRIUM: NORMAL LEFT ATRIUM: NORMAL RIGHT VENTRICLE: NORMAL LEFT VENTRICLE: NORMAL TRICUSPID VALVE: NORMAL MITRAL VALVE: NORMAL PULMONIC VALVE: NORMAL AORTIC VALVE: NORMAL PERICARDIAL EFFUSION: NONE AORTIC ROOT: NORMAL LEFT VENTRICULAR WALL MOTION: NORMAL EJECTION FRACTION. DECREASED LEFT VENTRICULAR COMPLIANCE. DOPPLER/COLOR FLOW: DECREASED LEFT VENTRICULAR COMPLIANCE. COMMENTS: DECREASED LEFT VENTRICULAR COMPLIANCE. NORMAL EJECTION FRACTION. TECHNICALLY DIFFICULT STUDY. NO EFFUSION. TECHNOLOGIST: [place] [facility]
[2021-07-10 13:00] LABS: Urine Appearance CLEAR (Clear); Urine Bilirubin NEGATIVE (Negative); Urine Blood NEGATIVE (Negative); Urine Color YELLOW (Yellow); Urine Glucose 3+ (Negative); Urine Protein TRACE (Negative); Urine Urobilinogen 0.2 mg/dL (0.2-1.0); Urine pH 5.5 (5.0-7.0)
[2021-07-10 13:01] LABS: Urine Microscopic Reflex NO UMIC
--- NOTE | 2021-07-10 13:24 | P.PN ---
Subjective Date of Service: 07/10/21 Primary Care Provider: Blake Chief Complaint: Chest pain Subjective: No new changes Review of Systems 10-point ROS is otherwise unremarkable Physical Examination - Vital Signs Temperature: 98.1 F Blood Pressure: 141/67 Pulse: 65 Respirations: 18 Pulse Ox (%): 96 - Physical Exam General: Alert, In no apparent distress HEENT: Atraumatic, PERRLA, EOMI Neck: Supple, JVD not distended Respiratory: Clear to auscultation bilaterally, Normal air movement Cardiovascular: Regular rate/rhythm, Normal S1 S2 Gastrointestinal: Normal bowel sounds, No tenderness Musculoskeletal: No tenderness Integumentary: No rashes Neurological: Normal speech, Normal tone, Normal affect Lymphatics: No axilla or inguinal lymphadenopathy Assessment & Plan - Problems (Diagnosis) (1) Acute renal failure Current Visit: Yes Status: Chronic Plan: Will consult Dr. Davis. Will hold off on diuresis. There is some increased interstial markings. However he has no clinical signs of fluid overload 07/10/[address] Clark. Start the patient on fluids Qualifiers: Acute renal failure type: unspecified Qualified Code(s): N17.9 - Acute kidney failure, unspecified (2) Chest pain Onset Date: 08/24/17 Current Visit: No Status: Acute Plan: will consult Dr. Issa. Check an echo Currently no chest pain. Mild troponin leak. Considering his creatine this in no significant. Will await cardiology input Qualifiers: Ischemic chest pain type: stable angina pectoris (3) Type 2 diabetes mellitus without complications Current Visit: Yes Status: Acute Plan: hold farxiga. Will cover with sliding scale. 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 With hydralazine for prn usage Discharge Plan: Home Plan to discharge in: 24 Hours - Code Status/Comfort Care Code Status Assessed: No Physician Review: Patient Assessed, Agree with Above Assessment and Plan Critical Care: No Time Spent Managing Pts Care (In Minutes): 20
[2021-07-10 13:41] LABS: UR PROTEIN 41.4 mg/dL (<11.9); Urine Protein/Creatinine Ratio 0.47 ratio (<0.15)
[2021-07-10] MEDS ORDERED: NA CHLORIDE 0.9% 1,000 ML IV SCH ×2 (14:00→17:00)
--- NOTE | 2021-07-10 14:57 | CON ---
Date of Consultation: 07/10/2021 Additional Consulting Physician: Deo Lozano MD Reason For Consultation: Elevated BUN, creatinine. History Of Present Illness: All the information has been obtained from the chart as the patient is forgetful and has dementia. Patient with significant past medical history of diabetes for the last 15 years, complicated with neuropathy, no retinopathy; hypertension; hyperlipidemia; CAD, status post stenting back in June 2021; chronic kidney disease, baseline creatinine back June 2021 before the cardiac cath was 2.1 with GFR of 29. Upon admission to the hospital, GFR was down to 18 with creatinine 3.2. For that reason, we have been consulted. No IV contrast except the cardiac cath back on the June 25, last month. Patient denied taking any nonsteroidal. No other insulting medication. No FLAKITO inhibitor or ARB. Patient came to the hospital complaining from shortness of breath, found to have marginal elevation in troponin with significant elevation in BNP. Patient was not started on any diuresis yet kidney function continued to decline with creatinine increased from 3 to 3.25 and GFR dropped from 19 to 18. Past Medical History: Include: 1. Gout. 2. COPD. 3. Hypertension. 4. CAD, status post stenting back in June 2021. 5. Hypertension. 6. Hyperlipidemia. 7. Diabetes complicated with neuropathy. Allergies: NO KNOWN DRUG ALLERGIES. Past Surgical History: Include: 1. PTCA. 2. Small intestine repair. 3. Hernia repair. Home Medications: Include: 1. Benazepril. 2. Doxazosin. 3. Lovastatin. 4. Allopurinol. Family History: Positive for CAD and hypertension. Social History: Denies smoking. Denies drinking. Denies drugs abuse. Review of Systems: Head and Neck: No red eye. No ear pain. GI: No nausea, no vomiting. : No polyuria, no dysuria, no hematuria. CLINICAL PROJECT ASSISTANT: Not applicable. Respiratory: Has shortness of breath. Cardiovascular: No leg edema. No orthopnea. Endocrine: No polydipsia. Skin: No rash. Neuro: Has neuropathy. Musculoskeletal: Generalized fatigue. Physical Examination: Vital Signs: When I saw the patient, patient was lying in bed, on room air, saturating 97, blood pressure 141/66, pulse of 70, afebrile. Chest: Clear to auscultation. Heart: S1, S2 regular. Abdomen: Soft, nontender. Extremities: No edema. Neuro: Alert, forgetful without any locality or focalization. No tremor. Laboratory Data: Sodium 137, potassium 4.8, bicarb 20, BUN 53, creatinine 3.2, GFR of 18, calcium 8.4. Phosphorus 2.2. Albumin 2.5. Corrected calcium is 9.6. BNP 33,555. Chest x-ray, cardiomegaly with marginal interstitial infiltration. TSH 0.9. Urinalysis not done yet. Current Medications: The patient is on include: 1. Plavix. 2. Carvedilol. 3. Doxazosin. 4. Hydralazine. 5. Isosorbide. 6. Tylenol. 7. Finasteride. 8. Zofran. Assessment And Plan: 1. 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 Worsening secondary to possible contrast induced nephropathy back in June/cardiorenal as a prerenal poor perfusion. Superimposed with FLAKITO inhibitor, benazepril. a. I agree with holding FLAKITO inhibitor. b. Looked to me the patient is on the normal volume even though with the elevation in the BNP mostly it is secondary to demanding. I can start the patient on gentle hydration with only 500, and we will monitor the patient closely. c. I am going to send for full workup with the presence of anemia. We will send for serum protein electrophoresis, and we will follow up. 2. Marginal acidosis secondary to renal failure. We going to start with the hydration, and we will monitor. 3. Hyponatremia secondary to depletion. We will start IV fluid. 4. Hypertension with the presence of acute kidney injury. Hold FLAKITO inhibitor. We will continue current treatment. 5. Coronary artery disease; congestive heart failure, diastolic. We will follow up with Cardiology. Hold diuresis for the time being. Start gentle hydration. 6. Diabetes as by Primary. I tried to contact the [id number] and the son at phone #[phone], left couple of messages. We will try to call her again. Thank you Dr. Lozano for allowing us to participate in the care of your patient. time spend exam the patient face to face , reviewing the data lab and radiology , placing order , discussing the case with the retail team leader including nursing staff and discussing with the hospitalist 65 min MONA/DIDIER Voice ID: [id number] Report ID: [id number] ZANE
--- NOTE | 2021-07-10 18:33 | RAD REPORT ---
EXAM DESCRIPTION: US - Renal Ultrasound-Complete - 07/10/2021 6:24 pm CLINICAL HISTORY: Acute renal insufficiency COMPARISON: None. FINDINGS: The right kidney measures 11 cm with mildly increased echotexture. 2.7 centimeter cyst Absent left kidney Hydronephrosis is not seen. No gross abnormality of bladder noted IMPRESSION: Mildly increased renal echotexture may indicate parenchymal disease No hydronephrosis
[2021-07-10] MEDS: DOXAZOSIN 4 MG TAB PO SCH (20:24)
[2021-07-10] MEDS: ATORVASTATIN 80 MG TAB PO SCH (20:28)
[2021-07-11 03:48] LABS: Hematocrit 31.2 % (39.6-49.0); Lymphocytes % 10.1 % (15.3-44.8); MPV 8.9 fL (7.6-11.3); RBC Red Blood Cell Count 3.55 M/uL (4.33-5.43)
[2021-07-11 04:56] LABS: Albumin 2.5 g/dL (3.4-5.0); Bilirubin Total 0.5 mg/dL (0.2-1.0); Ferritin 192.5 ng/mL (26-388); Folic Acid, (Folate) 7.2 ng/mL (3.1-17.5); Phosphorus 3.6 mg/dL (2.5-4.9); Potassium 4.6 mmol/L (3.5-5.1); Protein, Total 6.1 g/dL (6.4-8.2); Thyroid Stimulating Hormone 1.48 uIU/mL (0.360-3.740); Uric Acid 6.9 mg/dL (3.5-7.2)
[2021-07-11] MEDS: carvediloL 3.125 MG TAB PO SCH (05:17)
--- NOTE | 2021-07-11 09:10 | P.PN ---
Subjective Date of Service: 07/11/21 Primary Care Provider: Blake Chief Complaint: Chest pain Subjective: No new changes Review of Systems 10-point ROS is otherwise unremarkable Physical Examination - Vital Signs Temperature: 97.9 F Blood Pressure: 163/85 Pulse: 67 Respirations: 18 Pulse Ox (%): 96 - Physical Exam General: Alert, In no apparent distress HEENT: Atraumatic, PERRLA, EOMI Neck: Supple, JVD not distended Respiratory: Clear to auscultation bilaterally, Normal air movement Cardiovascular: Regular rate/rhythm, Normal S1 S2 Gastrointestinal: Normal bowel sounds, No tenderness Musculoskeletal: No tenderness Integumentary: No rashes Neurological: Normal speech, Normal tone, Normal affect Lymphatics: No axilla or inguinal lymphadenopathy Assessment & Plan - Problems (Diagnosis) (1) Acute renal failure Current Visit: Yes Status: Chronic Plan: Will consult Dr. Davis. Will hold off on diuresis. There is some increased interstial markings. However he has no clinical signs of fluid overload 1/6 continue fluids. Will discuss with Dr Clark Qualifiers: Acute renal failure type: unspecified Qualified Code(s): N17.9 - Acute kidney failure, unspecified (2) Chest pain Onset Date: 08/24/17 Current Visit: No Status: Acute Plan: will consult Dr. Issa. Check an echo Currently no chest pain. Mild troponin leak. Considering his creatine this in no significant. Will await cardiology input Qualifiers: Ischemic chest pain type: stable angina pectoris (3) Type 2 diabetes mellitus without complications Current Visit: Yes Status: Acute Plan: hold farxiga. Will cover with sliding scale. Qualifiers: Diabetes mellitus termite exterminator insulin use: with termite exterminator use Qualified Code(s): E11.9 - Type 2 diabetes mellitus without complications; Z79.4 - exterminator termite (current) use of insulin (4) Hyperlipidemia Onset Date: 09/29/16 Current Visit: No Status: Chronic Plan: restart his home statins Qualifiers: (5) Hypertension Onset Date: 09/29/16 Current Visit: No Status: Chronic Plan: restart carvedilol, and isosoride. With hydralazine for prn usage Discharge Plan: Home Plan to discharge in: 48 Hours - Code Status/Comfort Care Code Status Assessed: No Code Status: Full Code Physician Review: Patient Assessed, Agree with Above Assessment and Plan Critical Care: No Time Spent Managing Pts Care (In Minutes): 20
[2021-07-11] MEDS: FINASTERIDE 5 MG TAB PO SCH (09:28)
[2021-07-11] MEDS: ISOSORBIDE MONO SR 60 MG TAB PO SCH (09:28)
[2021-07-11] MEDS: CLOPIDOGREL 75 MG TABLET PO SCH (09:28)
--- NOTE | 2021-07-11 10:54 | RAD REPORT ---
EXAM DESCRIPTION: Jorge Single View07/11/2021 10:42 am CLINICAL HISTORY: Shortness of breath COMPARISON: July 08, 2021 FINDINGS: Mild worsening in the mild bilateral pulmonary opacities. Heart is normal size IMPRESSION: Mild worsening in mild bilateral pulmonary opacities which represent pulmonary edema or pneumonia
[2021-07-11] MEDS ORDERED: NA CHLORIDE 0.9% 1,000 ML IV SCH ×2 (11:00→15:48)
--- NOTE | 2021-07-11 11:03 | PN ---
Date of Progress Note: 07/11/2021 Subjective: The patient was admitted with acute kidney injury secondary to contrast-induced nephropathy. I spoke to the [id number], Brandon, at [phone]. Apparently, patient was admitted to [facility] in mid of June. He had cardiac cath with angioplasty without any stenting. He was requiring stenting, but apparently they could not do it because of the worsening of the kidney function. According to her, his creatinine in that period was above 3. He was treated upon discharge, it was on the end of the 2s, but again he was not a candidate for any further interventional because of the kidney function worsening. Yesterday, we started the patient on IV hydration, kidney number started to stabilize. Physical Examination: Vital Signs: Blood pressure of 163/85, pulse of 67, afebrile. Chest: Clear to auscultation. Patient lying flat, on room air. Heart: S1, S2 regular. Abdomen: Soft, nontender. Extremities: No edema. Neurologic: Alert, no focality. Laboratory Data: Sodium 137, potassium 4.6 bicarb 22, BUN 53, creatinine 3.4, GFR of 17, calcium 8.4, phosphorus 3.6, iron saturation 19, ferritin 192, albumin 2.5, corrected calcium is 9.6. PTH 246, BC ratio is 0.4, negative for infection. Serum protein electrophoresis is still pending. Current Medications: Include IV fluid normal saline at 50 per hour, atorvastatin, carvedilol 3.125, Cardura, isosorbide. Tylenol, finasteride. Imaging: Renal ultrasound showed solitary kidney, no hydronephrosis, 11 cm with 2.7 cm cyst, simple. Assessment And Plan: Acute kidney injury, multifactorial, secondary to FLAKITO inhibitor/contrast induced nephropathy, on advanced chronic kidney disease with renal vascular disease and diabetes nephropathy/cardio renal, protein uric, nonnephrotic, normal-sized kidney, on solitary kidney. 1. I had long discussion with the patient and with [id number] over the phone, Ms. Taylor, at [phone] about the disease and the prognosis for the patient. The patient still looked to me on the dry side. I am going to keep holding FLAKITO inhibitor. We will increase IV fluid to 75, and we will monitor the patient. I do not see the need to initiate any renal replacement therapy for the time being and we will follow up with the presence of the elevation in PTH. Mostly, this is chronic. 2. Hypertension, not controlled. I am going to go ahead and increase carvedilol to 6.25 and we will follow up the patient. 3. Secondary hyperparathyroidism. We will start the patient on calcitriol. 4. Iron deficiency anemia. We will start the patient on IV iron. 5. Renal cyst, simple. We will monitor. 6. Coronary artery disease, with congestive heart failure. The patient is still on the dry side, hold benazepril, hold diuresis. We will increase IV fluid and we will follow up. 7. Diabetes, as by primary. Time spent examining the patient, [id number], placing order, reviewing the data lab and radiology, discussing the case with other team leader including the primary care, Dr. Lozano, and their family over the phone and with other nursing staff, 45 minutes. CATE Voice ID: [id number] Report ID: [id number] ZANE
[2021-07-11] MEDS: CALCITROL 0.25 MCG CAP PO SCH (11:21)
[2021-07-11] MEDS: SOD FERRIC GLUC COMPLX/SUCROSE 250 MG in NA CHLORIDE 0.9% 250 ML IV SCH (11:27)
[2021-07-11] MEDS: carvediloL 6.25 MG TAB PO SCH (12:46)
[2021-07-11] MEDS ORDERED: FUROSEMIDE 40 MG/4 ML VIAL IV ONE (16:00)
[2021-07-11] MEDS ORDERED: DOXAZOSIN 2 MG TAB ONE (19:51)
[2021-07-11] MEDS: DOXAZOSIN 4 MG TAB PO SCH (19:55)
[2021-07-11] MEDS: ATORVASTATIN 80 MG TAB PO SCH (19:55)
[2021-07-11] MEDS: HYDRALAZINE HCL 20 MG/ML VIAL IV PRN (23:30)
[2021-07-12] MEDS: ACETAMINOPHEN 500 MG TAB PO PRN (00:42)
[2021-07-12] MEDS: carvediloL 6.25 MG TAB PO SCH ×2 (05:12→16:49)
[2021-07-12 05:14] VITALS: BMI 21.3
--- NOTE | 2021-07-12 06:01 | P.PN ---
Subjective Date of Service: 07/12/21 Primary Care Provider: Blake Chief Complaint: Chest pain Subjective: Other (he reports no increase in shortness of breath today.) Physical Examination - Vital Signs Temperature: 97.3 F Blood Pressure: 167/77 Pulse: 73 Respirations: 16 Pulse Ox (%): 94 - Physical Exam General: Other (appears as his stated age) HEENT: Atraumatic, Normocephalic Neck: Supple, JVD not distended Respiratory: Crackles/rales Cardiovascular: No rubs, No murmurs Gastrointestinal: Soft and benign, No guarding Musculoskeletal: No clubbing Integumentary: No warmth Neurological: Normal speech, Normal tone Urinary: Other (no bladder distention) External genitalia: Deferred Rectal: Deferred Assessment And Plan - Plan # PAM 2/2 accelerated Htn, ACEI use & contrast nephropathy, on CKD4 Has solitary R kidney, R renal cyst 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 I discontinued NS gtt today. iPTH sig elevated at 247, indicative of advanced CKD at baseline Hold FLAKITO inhibitor. Avoid ARB, NSAIDs, IV contrast. May resume ACEI or ARB when GFR improves to above 25. Continue doxazosin and finasteride BP control as below [place] by mouth fluid intake unless he develops hyponatremia Monitor input and output # Volume overload Volume overload with elevated BNP likely related to advanced CKD TTE unremarkable. +Min bibasilar rales. No JVD. Trace BLE edema Non-contrast chest CT scan on 07/12/21 showed mild bilateral pleural effusions, but no pulmo edema/pulmo Htn/ILD/PNA Minimize/avoid further diuretic dosing as volume overload is currently minimal/improved, & if he can keep up w/ low Na diet < 2g/d Minimize Na load po or IV [place] by mouth fluid intake unless he develops hyponatremia as above, to avoid further PAM # CAD s/p NSTEMI s/p PCI in Jun 2021; HLD Continue cardioprudent meds # Htn BP above goal Continue carvedilol 6.25 mg by mouth twice a day Start amlodipine 5 mg by mouth daily Continue doxazosin daily at bedtime Continue hydralazine IV prn # Acidosis Start oral bicarb 650 mg po bid # Anemia Received IV iron # Secondary hyperPTH Started on calcitriol F/u serum 25OHD # DM2 Management per primary team Physician Review: Patient Assessed, Agree with Above Assessment and Plan
[2021-07-12 06:25] LABS: Absolute Lymphocytes (CBC) 0.7 K/uL (0.7-4.9); Hematocrit 32.2 % (39.6-49.0); Lymphocytes % 8.5 % (15.3-44.8); MPV 9.1 fL (7.6-11.3); RBC Red Blood Cell Count 3.65 M/uL (4.33-5.43)
[2021-07-12 06:35] LABS: Albumin 2.4 g/dL (3.4-5.0); Phosphorus 3.5 mg/dL (2.5-4.9); Potassium 4.5 mmol/L (3.5-5.1)
[2021-07-12 06:36] LABS: Albumin 2.4 g/dL (3.4-5.0); Bilirubin Total 0.5 mg/dL (0.2-1.0); Potassium 4.3 mmol/L (3.5-5.1); Protein, Total 6.1 g/dL (6.4-8.2)
[2021-07-12] MEDS ORDERED: NA CHLORIDE 0.9% 1,000 ML IV SCH (07:30)
--- NOTE | 2021-07-12 08:02 | P.PN ---
Subjective Date of Service: 07/12/21 Primary Care Provider: Blake Chief Complaint: Chest pain Subjective: No new changes Review of Systems 10-point ROS is otherwise unremarkable Physical Examination - Vital Signs Temperature: 97.3 F Blood Pressure: 167/77 Pulse: 73 Respirations: 16 Pulse Ox (%): 94 - Physical Exam General: Alert, In no apparent distress HEENT: Atraumatic, PERRLA, EOMI Neck: Supple, JVD not distended Respiratory: Clear to auscultation bilaterally, Normal air movement Cardiovascular: Regular rate/rhythm, Normal S1 S2 Gastrointestinal: Normal bowel sounds, No tenderness Musculoskeletal: No tenderness Integumentary: No rashes Neurological: Normal speech, Normal tone, Normal affect Lymphatics: No axilla or inguinal lymphadenopathy Assessment & Plan - Problems (Diagnosis) (1) Acute renal failure Current Visit: Yes Status: Chronic Plan: Will consult Dr. Davis. Will hold off on diuresis. There is some increased interstial markings. However he has no clinical signs of fluid overload 07/12 Patient kidney function continues to worsen. Continue fluids. Will discuss with Nephrology Qualifiers: Acute renal failure type: unspecified Qualified Code(s): N17.9 - Acute kidney failure, unspecified (2) Chest pain Onset Date: 08/24/17 Current Visit: No Status: Acute Plan: will consult Dr. Issa. Check an echo Currently no chest pain. Mild troponin leak. Considering his creatine this in no significant. Will await cardiology input Qualifiers: Ischemic chest pain type: stable angina pectoris (3) Type 2 diabetes mellitus without complications Current Visit: Yes Status: Acute Plan: hold farxiga. Will cover with sliding scale. Qualifiers: Diabetes mellitus snf insulin use: with snf use Qualified Code(s): E11.9 - Type 2 diabetes mellitus without complications; Z79.4 - technician terminal and repeater (current) use of insulin (4) Hyperlipidemia Onset Date: 09/29/16 Current Visit: No Status: Chronic Plan: restart his home statins Qualifiers: (5) Hypertension Onset Date: 09/29/16 Current Visit: No Status: Chronic Plan: restart carvedilol, and isosoride. With hydralazine for prn usage Discharge Plan: Home Plan to discharge in: 48 Hours - Code Status/Comfort Care Code Status Assessed: No Physician Review: Patient Assessed, Agree with Above Assessment and Plan Critical Care: No Time Spent Managing Pts Care (In Minutes): 25
[2021-07-12] MEDS: FINASTERIDE 5 MG TAB PO SCH (08:22)
[2021-07-12] MEDS: ISOSORBIDE MONO SR 60 MG TAB PO SCH (08:22)
[2021-07-12] MEDS: CLOPIDOGREL 75 MG TABLET PO SCH (08:22)
[2021-07-12 08:29] LABS: Rheumatoid Factor NEG (NEG)
[2021-07-12 08:41] LABS: Blood Morphology Comment NOT SEEN (NOT SEEN); Platelet Estimate ADEQ; Platelets, Giant FEW
[2021-07-12] MEDS: ONDANSETRON 4 MG/2 ML VIAL IV PRN (12:50)
--- NOTE | 2021-07-12 14:49 | RAD REPORT ---
EXAM DESCRIPTION: CT - Thorax Wo Con - 07/12/2021 2:39 pm CLINICAL HISTORY: SOB, assess for interstitial lung dse COMPARISON: No comparisons FINDINGS: Chest Wall: No suspicious thyroid nodules or pathologic lymphadenopathy. Lungs: Mild irregular focal nodularity and micro nodularity in the right upper lobe. No evidence of e ither a a restricted or obstructive lung process. Trace micro nodularity in the medial aspect of the left upper lobe. Pleura: Small pleural effusions. Mediastinum/bronwyn: No pathologic lymphadenopathy. Pulmonary arteries/Aorta: Limited evaluation without contrast. No aortic aneurysm. Heart: No significant pericardial effusion. Normal heart size. Heavily calcified coronary arteries. A ortic valve calcifications. Upper abdomen: No acute abnormality. Small hiatal hernia. Bones: No acute abnormality. All CT scans are performed using dose optimization technique as appropriate and may include automated exposure control or mA/KV adjustment according to patient size. IMPRESSION: Small bilateral pleural effusions. Mild nodularity in the bilateral upper lobes which is probably not of clinical significance related to shortness of breath but for which follow-up is humberto mmended in 6 months to ensure stability. No evidence of an interstitial lung disease.
[2021-07-12 16:58] LABS: Urine Appearance CLEAR (Clear); Urine Bilirubin NEGATIVE (Negative); Urine Blood NEGATIVE (Negative); Urine Color YELLOW (Yellow); Urine Glucose 3+ (Negative); Urine Protein NEGATIVE (Negative); Urine Specific Gravity 1.015 (1.005-1.030); Urine Urobilinogen 0.2 mg/dL (0.2-1.0)
[2021-07-12 17:02] LABS: Urine Microscopic Reflex NO UMIC
[2021-07-12] MEDS: DOXAZOSIN 4 MG TAB PO SCH (21:00)
[2021-07-12] MEDS ORDERED: DOXAZOSIN 2 MG TAB ONE (21:07)
[2021-07-12] MEDS: ATORVASTATIN 80 MG TAB PO SCH (21:10)
[2021-07-13] MEDS: carvediloL 6.25 MG TAB PO SCH ×2 (05:01→17:39)
[2021-07-13 05:08] LABS: Hematocrit 31.1 % (39.6-49.0); Lymphocytes % 11.8 % (15.3-44.8); MPV 9.7 fL (7.6-11.3); RBC Red Blood Cell Count 3.54 M/uL (4.33-5.43)
[2021-07-13 05:27] LABS: Albumin 2.3 g/dL (3.4-5.0); Magnesium 2.1 mg/dL (1.8-2.4); Phosphorus 3.8 mg/dL (2.5-4.9); Potassium 4.7 mmol/L (3.5-5.1)
[2021-07-13] MEDS: FINASTERIDE 5 MG TAB PO SCH (08:51)
[2021-07-13] MEDS: CLOPIDOGREL 75 MG TABLET PO SCH (08:51)
[2021-07-13] MEDS: SODIUM BICARB 325 MG TAB PO SCH ×2 (08:51→20:39)
[2021-07-13] MEDS: AMLODIPINE 5 MG TAB PO SCH (08:51)
[2021-07-13] MEDS: ISOSORBIDE MONO SR 60 MG TAB PO SCH (08:51)
--- NOTE | 2021-07-13 11:05 | P.PN ---
Subjective Date of Service: 07/13/21 Primary Care Provider: Blake Chief Complaint: Chest pain Subjective: Worsening Review of Systems 10-point ROS is otherwise unremarkable Physical Examination - Vital Signs Temperature: 98.1 F Blood Pressure: 127/74 Pulse: 77 Respirations: 16 Pulse Ox (%): 95 - Physical Exam General: Alert, In no apparent distress HEENT: Atraumatic, PERRLA, EOMI Neck: Supple, JVD not distended Respiratory: Clear to auscultation bilaterally, Normal air movement Cardiovascular: Regular rate/rhythm, Normal S1 S2 Gastrointestinal: Normal bowel sounds, No tenderness Musculoskeletal: No tenderness Integumentary: No rashes Neurological: Normal speech, Normal tone, Normal affect Lymphatics: No axilla or inguinal lymphadenopathy Assessment & Plan - Problems (Diagnosis) (1) Acute renal failure Current Visit: Yes Status: Chronic Plan: Will consult Dr. Davis. Will hold off on diuresis. There is some increased interstial markings. However he has no clinical signs of fluid overload 07/[address] Thakur. May be proceeding to ESRD. due to LV dysfunction. Will put him on a low salt diet. and small amount of lasix He discussed the patient possible dialysis. However he currently he does not wish this Qualifiers: Acute renal failure type: unspecified Qualified Code(s): N17.9 - Acute kidney failure, unspecified (2) Chest pain Onset Date: 08/24/17 Current Visit: No Status: Acute Plan: will consult Dr. Issa. Check an echo Currently no chest pain. Mild troponin leak. Considering his creatine this in no significant. Will await cardiology input Qualifiers: Ischemic chest pain type: stable angina pectoris (3) Type 2 diabetes mellitus without complications Current Visit: Yes Status: Acute Plan: hold farxiga. Will cover with sliding scale. Qualifiers: Diabetes mellitus long-term insulin use: with long-term use Qualified Code(s): E11.9 - Type 2 diabetes mellitus without complications; Z79.4 - FDC (current) use of insulin (4) Hyperlipidemia Onset Date: 09/29/16 Current Visit: No Status: Chronic Plan: restart his home statins Qualifiers: (5) Hypertension Onset Date: 09/29/16 Current Visit: No Status: Chronic Plan: restart carvedilol, and isosoride. With hydralazine for prn usage Discharge Plan: Home Plan to discharge in: 24 Hours Physician Review: Patient Assessed, Agree with Above Assessment and Plan Time Spent Managing Pts Care (In Minutes): 25
[2021-07-13] MEDS: CALCITROL 0.25 MCG CAP PO SCH (11:25)
[2021-07-13] MEDS ORDERED: FUROSEMIDE 20 MG/ 2ML VIAL IV SCH (12:00)
[2021-07-13] MEDS ORDERED: NA CHLORIDE 0.9% 500 ML IV SCH (13:00)
--- NOTE | 2021-07-13 16:06 | PN ---
Date of Progress Note: 07/10/2021 Mr. Mckeon was seen because of congestive heart failure, most likely diastolic, COPD exacerbation, hypertension, dyslipidemia, gout, history of small bowel obstruction. Echocardiogram was done becau se of his presentation and he was found to have an ejection fraction of 75% with some decreased left ventricular compliance consistent with diastolic congestive heart failure. The patient is being foll owed by Nephrology. Dr. Lozano is seeing the patient. His present regimen includes amlodipine, Lipit or, Plavix, doxazosin. He is on Lasix, hydralazine, Imdur, as well as carvedilol. I will continue h is present regimen. I will be available for questions if any need arise. MARITZA/DIDIER Voice ID: [id number] Report ID: [id number]
--- NOTE | 2021-07-13 16:36 | PN ---
Date of Progress Note: 07/13/2021 Subjective: The patient was admitted with acute kidney injury on advanced chronic kidney disease secondary to prerenal. The patient is feeling better, but kidney function continued to decline gradually. Physical Examination: Vital Signs: Blood pressure 127/74, pulse of 77, afebrile. The patient had good urine output of 650. Chest: Clear to auscultation. Heart: S1, S2. Regular. Abdomen: Soft, nontender. Extremities: No edema. Neuro: Alert. No focality. Laboratory Data: WBC 8.5, H and H of 11.5/31.1. Sodium 135, potassium 4.7, bicarb 22, BUN 54, creatinine 3.9, GFR of 15. Calcium 8.3, phosphorus 3.8, magnesium 2.1, albumin 2.3. Current Medications: Include, 1. IV iron. 2. Plavix. 3. Amlodipine 5 mg. 4. Carvedilol 6.25. 5. Cardura. 6. Isosorbide. 7. Tylenol. 8. Lasix. 9. Finasteride. 10. Sodium bicarbonate. Assessment And Plan: 1. Acute kidney injury on advanced chronic kidney disease. On differential diagnosis, prerenal/progression of the disease. 2. Contrast-induced nephropathy. 3. Atheroembolic supported with peripheral eosinophilia. I am going to go ahead and get urine eosinophils. We will follow up complement. 4. Discontinue Lasix for the time being. We will monitor the patient closely. I do not see any need for any renal replacement therapy for the time being. We will follow up the serology for the patient. 5. If it is atheroembolic, we can watch until plateau. 6. Hypertension, controlled, optimal. Continue current medications. Keep holding any FLAKITO inhibitor or ARB. 7. Coronary artery disease with congestive heart failure, currently normal volume. I am going to discontinue Lasix. We will give the patient normal saline 500 mL and we will follow up the patient. 8. Iron-deficiency anemia. Continue IV iron. 9. Hyponatremia, secondary to depletion. We will start the patient on gentle hydration. time spend exam the patient face to face , reviewing the data lab and radiology , placing order , discussing the case with the paper steamer including nursing staff and discussing with the hospitalist 45 min CATE Voice ID: [id number] Report ID: [id number] MTDColton
[2021-07-13] MEDS ORDERED: DOXAZOSIN 2 MG TAB ONE (20:31)
[2021-07-13] MEDS: ATORVASTATIN 80 MG TAB PO SCH (20:39)
[2021-07-13] MEDS: DOXAZOSIN 4 MG TAB PO SCH (21:00)
[2021-07-14] MEDS: carvediloL 6.25 MG TAB PO SCH ×2 (05:54→17:06)
[2021-07-14 06:41] LABS: Albumin 2.3 g/dL (3.4-5.0); Phosphorus 4.1 mg/dL (2.5-4.9); Potassium 4.4 mmol/L (3.5-5.1)
[2021-07-14] MEDS: AMLODIPINE 5 MG TAB PO SCH (08:58)
[2021-07-14] MEDS: SODIUM BICARB 325 MG TAB PO SCH ×2 (08:58→19:59)
[2021-07-14] MEDS: ISOSORBIDE MONO SR 60 MG TAB PO SCH (08:59)
[2021-07-14] MEDS: FINASTERIDE 5 MG TAB PO SCH (08:59)
[2021-07-14] MEDS: CLOPIDOGREL 75 MG TABLET PO SCH (08:59)
--- NOTE | 2021-07-14 10:47 | P.PN ---
Subjective Date of Service: 07/14/21 Primary Care Provider: Blake Chief Complaint: Chest pain Subjective: No new changes Review of Systems 10-point ROS is otherwise unremarkable Physical Examination - Vital Signs Temperature: 97.5 F Blood Pressure: 143/74 Pulse: 75 Respirations: 16 Pulse Ox (%): 96 - Physical Exam General: Alert, In no apparent distress HEENT: Atraumatic, PERRLA, EOMI Neck: Supple, JVD not distended Respiratory: Clear to auscultation bilaterally, Normal air movement Cardiovascular: Regular rate/rhythm, Normal S1 S2 Gastrointestinal: Normal bowel sounds, No tenderness Musculoskeletal: No tenderness Integumentary: No rashes Neurological: Normal speech, Normal tone, Normal affect Lymphatics: No axilla or inguinal lymphadenopathy Assessment & Plan - Problems (Diagnosis) (1) Acute renal failure Current Visit: Yes Status: Chronic Plan: Will consult Dr. Davis. Will hold off on diuresis. There is some increased interstial markings. However he has no clinical signs of fluid overload 07/14 Have discussed with the patient son and dil. We will keep him in house. Discussed with the patient and family the possibility of dialysis. Qualifiers: Acute renal failure type: unspecified Qualified Code(s): N17.9 - Acute kidney failure, unspecified (2) Chest pain Onset Date: 08/24/17 Current Visit: No Status: Acute Plan: will consult Dr. Issa. Check an echo Currently no chest pain. Mild troponin leak. Considering his creatine this in no significant. Will await ca rdiology input Qualifiers: Ischemic chest pain type: stable angina pectoris (3) Type 2 diabetes mellitus without complications Current Visit: Yes Status: Acute Plan: hold farxiga. Will cover with sliding scale. Qualifiers: Diabetes mellitus usp insulin use: with terminal manager use Qualified Code(s): E11.9 - Type 2 diabetes mellitus without complications; Z79.4 - terminologist (current) use of insulin (4) Hyperlipidemia Onset Date: 09/29/16 Current Visit: No Status: Chronic Plan: restart his home statins Qualifiers: (5) Hypertension Onset Date: 09/29/16 Current Visit: No Status: Chronic Plan: restart carvedilol, and isosoride. With hydralazine for prn usage Discharge Plan: Home Plan to discharge in: 24 Hours - Code Status/Comfort Care Code Status Assessed: No Physician Review: Patient Assessed, Agree with Above Assessment and Plan Critical Care: No Time Spent Managing Pts Care (In Minutes): 25
--- NOTE | 2021-07-14 11:36 | PN ---
Date of Progress Note: 07/14/2021 Subjective: The patient was admitted with acute kidney injury after cardiac cath. The patient denied any chest pain. No fever. Physical Examination: Vital Signs: Blood pressure 143/74, pulse of 75, afebrile. Had good urine output of 1200. Chest: Clear to auscultation. Heart: S1, S2. Regular. Abdomen: Soft, nontender. Extremity: No edema. Neurologic: Alert, oriented x3. No focal. Laboratory Data: WBC 8.5, H and H 10.5/31.1. Sodium 135, potassium 4.4, bicarb 22, BUN 59, creatinine 4.1, GFR of 14, calcium 8.4, phosphorus 4.1, albumin 2.3, corrected calcium is 9.6. Current Medications: The patient on include; 1. IV iron. 2. Plavix. 3. Amlodipine. 4. Atorvastatin. 5. Carvedilol 6.25. 6. Cardura. 7. Isosorbide. 8. Sodium bicarb 650 b.i.d. 9. Finasteride. 10. Calcitriol. Assessment And Plan: 1. Acute kidney injury on chronic kidney disease, possible of atheroembolic supported with peripheral eosinophilia/contrast-induced nephropathy, superimposed with ARB. Normal volume. No hyperkalemia or acidosis. No uremic symptoms. Failed on IV fluid or even diuresis. Leave us with the possibility of atheroembolic. Again, I do not see the urgency to initiate any renal replacement therapy. We will monitor the patient closely over the night and we will follow up lab. If kidney function declined significantly, at that time the patient may need to be initiated on renal replacement therapy, hopefully not on this admission. We will monitor. 2. Hypertension, controlled, optimal. Keep holding any ARB or FLAKITO inhibitor. We will monitor. 3. 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 Normal volume. Continue to monitor. 4. Iron deficiency anemia. Continue IV iron. 5. Hyponatremia, dilutional, secondary to congestive heart failure. Normal currently. We will keep holding any IV fluid. We will follow up serology. 6. Chronic kidney disease with acute kidney injury as above. Awaiting for the serology. If the serology positive, at that time we will proceed with the kidney biopsy, but if the serology showing already depleted complement with positive eosinophil in the urine, we will confirm the diagnosis with BX but will not change the treatment plan . I discussed with the patient regarding possibility. He may need on the short-term to be initiated on renal replacement therapy. The patient on agreement on that. We will follow up the patient closely. CATE Voice ID: [id number] Report ID: [id number] ZANE
[2021-07-14] MEDS: SOD FERRIC GLUC COMPLX/SUCROSE 250 MG in NA CHLORIDE 0.9% 250 ML IV SCH (12:01)
[2021-07-14 15:44] LABS: HIV AG/AB 4TH GEN Non-reactive (Non-reactive)
[2021-07-14] MEDS: DOXAZOSIN 4 MG TAB PO SCH (19:58)
[2021-07-14] MEDS: ATORVASTATIN 80 MG TAB PO SCH (19:58)
[2021-07-14 23:40] LABS: Albumin, (SPE) 2.8 g/dL (3.8-4.8); Alpha-1-Globulins 0.5 g/dL (0.2-0.3); Alpha-2-Globulins 0.9 g/dL (0.5-0.9); Gamma Globulins 0.7 g/dL (0.8-1.7); INTERPRETATION REPORT
[2021-07-15 04:48] VITALS: O2SAT 95
[2021-07-15] MEDS: ACETAMINOPHEN 500 MG TAB PO PRN (04:59)
[2021-07-15] MEDS: carvediloL 6.25 MG TAB PO SCH (04:59)
[2021-07-15 06:20] LABS: Albumin 2.3 g/dL (3.4-5.0); Phosphorus 3.9 mg/dL (2.5-4.9); Potassium 4.5 mmol/L (3.5-5.1)
--- NOTE | 2021-07-15 07:43 | P.DS ---
Admission Date: 07/09/21 Discharge Date: 07/15/21 Primary Care Provider: Blake Reason for Admission: Chest pain - Problems (1) Acute renal failure Current Visit: Yes Status: Chronic Qualifiers: Acute renal failure type: unspecified Qualified Code(s): N17.9 - Acute kidney failure, unspecified (2) Chest pain Onset Date: 08/24/17 Current Visit: No Status: Acute Qualifiers: Ischemic chest pain type: stable angina pectoris (3) Type 2 diabetes mellitus without complications Current Visit: Yes Status: Acute Qualifiers: Diabetes mellitus prison insulin use: with truck terminal manager use Qualified Code(s): E11.9 - Type 2 diabetes mellitus without complications; Z79.4 - truck terminal manager (current) use of insulin (4) Hyperlipidemia Onset Date: 09/29/16 Current Visit: No Status: Chronic Qualifiers: (5) Hypertension Onset Date: 09/29/16 Current Visit: No Status: Chronic Brief History of Present Illness: Office patient of [facility]. He recently had a NSTEMI Tre[place] [facility] That was [place]16/[place]. He required a ballon assist device for a few days on that admission. He was experiencing chest pain and sob over the weekend. Therefore came to the er Was found to have a mild troponin leak Very elevated bnp. His creatine is also elevated to 3. His baseline is around 1.6 He has been set up to see Dr. Davis in the past Hospital Course: Patient was admitted for acute kidney failure. Seen by Dr. Amber rooney his kidney function did not improve. He is stable clinically. This may be thromboembolic or contrast nephropathy Either way he may slowly recover or have to go on Dialysis. The patient was discussed with his daughter in law. will have him follow up with Nephro. Follow up in the office in a week. Stop the farxiga and the insulin. continue his cardiac meds Vital Signs/Physical Exam: Temp Pulse Resp BP Pulse Ox 98.6 F 72 19 148/74 H 92 07/15/21 06:17 07/15/21 06:17 07/15/21 04:00 07/15/21 06:17 07/15/21 04:00 General: Alert, In no apparent distress HEENT: Atraumatic, PERRLA, EOMI Neck: Supple, JVD not distended Respiratory: Clear to auscultation bilaterally, Normal air movement Cardiovascular: Regular rate/rhythm, Normal S1 S2 Gastrointestinal: Normal bowel sounds, No tenderness Musculoskeletal: No tenderness Integumentary: No rashes Neurological: Normal speech, Normal tone, Normal affect Lymphatics: No axilla or inguinal lymphadenopathy Laboratory Data at Discharge: WBC 8.50 K/uL (4.3-10.9) 07/13/21 04:20 Hgb 10.5 g/dL (13.6-17.9) L 07/13/21 04:20 Hct 31.1 % (39.6-49.0) L 07/13/21 04:20 Plt Count 132 K/uL (152-406) L 07/13/21 04:20 PT 13.7 SECONDS (9.5-12.5) H 07/08/21 19:45 INR 1.19 07/08/21 19:45 Sodium 134 mmol/L (136-145) L 07/15/21 05:25 Potassium 4.5 mmol/L (3.5-5.1) 07/15/21 05:25 BUN 60 mg/dL (7-18) H 07/15/21 05:25 Creatinine 4.24 mg/dL (0.55-1.3) H 07/15/21 05:25 Glucose 132 mg/dL (74-106) H 07/15/21 05:25 Uric Acid 6.9 mg/dL (3.5-7.2) 07/11/21 03:27 Phosphorus 3.9 mg/dL (2.5-4.9) 07/15/21 05:25 Magnesium 2.1 mg/dL (1.8-2.4) 07/13/21 04:20 Total Bilirubin 0.5 mg/dL (0.2-1.0) 07/12/21 06:05 AST 14 U/L (15-37) L 07/12/21 06:05 ALT 16 U/L (12-78) 07/12/21 06:05 Alkaline Phosphatase 61 U/L (45-117) 07/12/21 06:05 Troponin I 0.38 ng/mL (0.0-0.045) H 07/09/21 06:59 Home Medications: Aspirin [Aspirin EC] 81 mg PO DAILY 07/09/21 Atorvastatin Calcium [Lipitor] 80 mg PO BEDTIME 07/09/21 Carvedilol [Coreg] 3.125 mg PO BID 07/09/21 Clopidogrel Bisulfate [Clopidogrel] 75 mg PO DAILY 07/09/21 Doxazosin [Cardura*] 4 mg PO DAILY 07/09/21 Finasteride [Proscar*] 5 mg PO DAILY 07/09/21 Hydralazine [Apresoline*] 25 mg PO Q8H 07/09/21 Diet: Renal Activity: Ad frankie Followup: Deo Lozano MD [Primary Care Provider] - Gi Yoo MD [COURTESY - CAN ADMIT] - 1 Day Time spent managing pt's care (in minutes): 35
[2021-07-15] MEDS ORDERED: FLUTICASONE 50MCG NASAL SPRAY NAS SCH (09:00)
[2021-07-15] MEDS: AMLODIPINE 5 MG TAB PO SCH (09:09)
[2021-07-15] MEDS: FINASTERIDE 5 MG TAB PO SCH (09:09)
[2021-07-15] MEDS: SODIUM BICARB 325 MG TAB PO SCH (09:09)
[2021-07-15] MEDS: ISOSORBIDE MONO SR 60 MG TAB PO SCH (09:09)
[2021-07-15] MEDS: CLOPIDOGREL 75 MG TABLET PO SCH (09:09)
[2021-07-15] MEDS: CALCITROL 0.25 MCG CAP PO SCH (11:29)
[2021-07-15 11:33] LABS: Vitamin D 1,25-Dihydroxy Total 18 pg/mL (18-72); Vitamin D,1,25-OH2, D2 <8 pg/mL
[2021-07-15 12:26] VITALS: BP 148/78; TEMP 97.5
[2021-07-15 19:41] LABS: HBsAG Nonreactive (Nonreactive)
--- NOTE | 2021-07-15 20:34 | PN ---
Date of Progress Note: 07/15/2021 Chief Complaint: Acute on chronic kidney injury, nonoliguric. History Of Present Illness: The patient has contrast-induced nephropathy. After he had cardiac catheterization, he developed progressively worse renal function, and kidney function declined. The patient is asymptomatic. He does not have uremic symptom. Review of Systems: Denies fever, chills. Physical Examination: Lungs: Clear to auscultation bilaterally. Heart: S1, S2. Abdomen: Soft, benign. Extremities: Minimal edema. Impression And Plan: 1. Acute on chronic kidney injury secondary to contrast-induced nephropathy possible acute tubular necrosis with superimposed effect of angiotensin receptor analilia. The patient has nonoliguric urine output. Electrolytes are stable. There is no hyperkalemia. Acidosis is well compensated. The patient is on sodium bicarbonate tablet. The patient will follow up with me in the clinic. The patient may need dialysis in near future. The patient will avoid nonsteroidal anti-inflammatory medication. The patient will continue low- potassium diet. Follow blood pressure. FLAKITO inhibitor is on hold. The patient will continue to follow up with me outpatient. 2. 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 The patient is euvolemic. Continue low-sodium. DICTATION ENDS HERE. LINDSAY/DIDIER Voice ID: [id number] Report ID: [id number] ZANE
== END 2021-07-15 12:31 | disposition home or self-care (01) | DRG 683 ==
LOC: ER 19:25 → ERHOLD 07-09 02:09 → 2ND 07-09 09:15
PROVIDERS: ADMIT Internal Medicine; ATTEND Internal Medicine
DX: N17.9 Acute kidney failure, unspecified (principal); E87.1 Hypo-osmolality and hyponatremia; I75 Atheroembolism; I13.0 Hypertensive heart and chronic kidney disease with heart failure and stage 1 through stage 4 chronic kidney disease, or unspecified chronic kidney disease; I50.32 Chronic diastolic (congestive) heart failure; Q60.0 Renal agenesis, unilateral; J44.1 Chronic obstructive pulmonary disease with (acute) exacerbation; I24.8 Other forms of acute ischemic heart disease; N14.1 Nephropathy induced by other drugs, medicaments and biological substances; T50.8X5A Adverse effect of diagnostic agents, initial encounter; Y92.239 Unspecified place in hospital as the place of occurrence of the external cause; E78.5 Hyperlipidemia, unspecified; D50.9 Iron deficiency anemia, unspecified; I25.119 Atherosclerotic heart disease of native coronary artery with unspecified angina pectoris; N18.4 Chronic kidney disease, stage 4 (severe); E11.22 Type 2 diabetes mellitus with diabetic chronic kidney disease; N25.81 Secondary hyperparathyroidism of renal origin; N28.1 Cyst of kidney, acquired; M10.9 Gout, unspecified; E11.40 Type 2 diabetes mellitus with diabetic neuropathy, unspecified; F03.90 Unspecified dementia, unspecified severity, without behavioral disturbance, psychotic disturbance, mood disturbance, and anxiety; Z98.61 Coronary angioplasty status; Z20.822 Contact with and (suspected) exposure to COVID-19; I25.2 Old myocardial infarction; Z79.4 Long term (current) use of insulin
CPT/HCPCS: 36415; 71045; 71250; 76770; 80048; 80053; 80069; 80076; 81003; 82306; 82550; 82565; 82570; 82607; 82652; 82728; 82746; 82947; 83520; 83540; 83735; 83880; 83935; 83970; 84100; 84132; 84156; 84165; 84300; 84443; 84466; 84484; 84550; 85025; 85044; 85610; 86021; 86038; 86160; 86225; 86317; 86430; 86704; 86706; 87340; 87389; 87522; 88108; 93005; 93306; 97116; 97161; 99284; J0360; J1940; J2405; J2916; J7030; J7050; U0003

== ENCOUNTER 2021-07-16 10:17 | Emergency (ER) | payer OTHER ==
--- OUTSIDE RECORDS SUMMARY | 2021-07-16 10:21 | XMS REPORT | Continuity of Care Document ---
:1935 Author Organization [facility] t Address [address] [place] [address] Dr. Esteban. [address] [place] [address] Care Team Providers Name Role Phone Blake Mihaela Primary Care Physician Celeste ROBERTS Attending Clinician Unavailable DARIAN ROBERTS Attending Clinician Unavailable ALEJANDRA SKELTON Attending Clinician Unavailable Celeste Roberts MD Attending Clinician Doctor Unassigned, Name Attending Clinician Unavailable Only, Test Attending Clinician Unavailable Pob, Lab Main Attending Clinician Unavailable Celeste ROBERTS Admitting Clinician Unavailable DHOBLE Admitting Clinician Unavailable ALEJANDRA SKELTON Admitting Clinician Unavailable Quinten AMATO, Celeste Admitting Clinician Payers Payer Name Policy Type Policy Number Effective Date Expiration Date Pablo FRAGA/MILAGROSP [id number] 2020 00:00:00 [employer] ADV CHOICE PPO Problems This patient has no known problems. Allergies, Adverse Reactions, Alerts Allergy Allergy Status Severity Reaction(s) Onset Inactive Treating Comm ents Source Name Type Date Date Clinician NO KNOWN Drug Active Univers ALLERGIE Class ity of [facility] Social History Social Habit Start Date Stop Date Quantity Comments Source Exposure to Not sure [facility] SARS-CoV-2 (event) Medica l Branch Tobacco use and 2021-05-20 2021-05-20 [facility]00[facility]00 [facility] Sex Assigned At [birth year] [facility] 00:00:00 00:00:00 Medical Branch Smoking Status Start Date Stop Date Source Unknown if ever smoked [facility] Never smoker [facility] Medications Ordered Filled Start [...] ity of VISCO 17:16: 21:35 on Thu [place] ELASTIC) 3 00 :56 05/22/21 Medic [...] ophthalmic at 1101, Branc h solution Until Wed 500 mL bag 05/22/21 at 1535, Routine, Intra-op cyclopent 2020-07- No .5mL 0.5 mL, Univ ers 1%-tropic 07-22 Right Eye, ity of 1%-phenyl 17:00: 17:19 [place] 2.5%-ketor 00 :00 dose, On Medic al 0.5% Wed Branch ophthalmic 05/22/21 solution at 1100, syringe 0.5 Routine, mL DSU Pre-op lactated 2020-07- No 1000mL at 42 Unive rs ringers IV 07-22 mL/hr, ity of infusion 17:00: 17:18 1,000 mL, Gustavo as 1,000 mL 00 :00 IV Medical Infusion, Branch ONCE, 1 dose, On Thu05/22/21 at 1100, Routine, DSU Pre-op cyclopent 2020-07- No .5mL 0.5 mL, Univ ers 1%-tropic 07-22 Right Eye, ity of 1%-phenyl 17:00: 17:19 [place] 2.[place]%-ketor 00 :00 dose, On Medic al 0.5% [facility] Branch ophthalmic 05/22/21 solution at 1100, [...] by mouth ity of tablet 13:35: daily. [address] aspirin 81 2020-07 Yes 81mg Take 81 mg U nivers mg chewable 1-17 by mouth ity of tablet 13:35: daily. [address] aspirin 81 2020-07 Yes 81mg Take 81 mg U nivers mg chewable 1-17 by mouth ity of tablet 13:35: daily. [address] aspirin 81 2020-07 Yes 81mg Take 81 mg U nivers mg chewable 1-15 by mouth ity of tablet 09:16: daily. [place] 40 [facility] finasteride 2020-07 Yes Univer s 5 mg tablet 1-02 ity of 00:00: [place] 00 [facility] finasteride 2020-07 Yes Univer s 5 mg tablet 102 ity of 00:00: [address] finasteride 2020-07 Yes Univer s 5 mg tablet 1-02 ity of 00:00: [address] finasteride 2020-07 Yes Univer s 5 mg tablet 02 ity of 00:00: [address] 5 2020-07 Yes Univers mg tablet 0-26 ity of 00:00: [address] 5 2020-07 Yes Univers mg tablet 0-26 ity of 00:00: [address] 5 2020-07 Yes Univers mg tablet 0-26 ity of 00:00: [address] 5 2020-07 Yes Univers mg tablet 0-26 ity of 00:00: [address] benazepriL 2020-07 Yes Univers 5 mg tablet 0-15 ity of 00:00: [address] doxazosin 4 2020-07 Yes Univer s mg tablet 0-15 ity of 00:00: [address] benazepriL 2020-07 Yes Univers 5 mg tablet 0-15 ity of 00:00: [address] doxazosin 4 2020-07 Yes Univer s mg tablet 0-15 ity of 00:00: [address] benazepriL 2020-07 Yes Univers 5 mg tablet 0-15 ity of 00:00: [address] doxazosin 4 2020-07 Yes Univer s mg tablet 0-15 ity of 00:00: [address] benazepriL 2020-07 Yes Univers 5 mg tablet 0-15 ity of 00:00: [place] [id number] Medical Branch doxazosin 4 2020-1 Yes Univer s mg tablet 0-15 ity of 00:00: [place] [address] Medical Branch Vital Signs Vital Name Observation Time Observation Value Comments Source Heart rate 2021-05-22 19:16:00 50 /min [facility] [place] [facility] Respiratory rate 2021-05-22 19:16:00 14 /min Univ ers[facility] [place] [facility] Oxygen saturation in 2021-05-22 19:16:00 98 /min University of Arterial blood by [facility] Pulse oximetry Branch Systolic blood 2021-05-22 19:14:00 146 mm[Hg] Univer sity of pressure [place] [facility] [place] Diastolic blood 2021-05-22 19:14:00 91 mm[Hg] Unive rsity of pressure [place] [facility] Body temperature 2021-05-22 19:03:00 36.39 Emily [facility] [place] [facility] [place] Body height 2021-05-20 15:59:00 172.7 cm [facility] [place] [facility] Body weight 2021-05-20 15:59:00 68 kg [facility] [place] [facility] BMI 2021-05-20 15:59:00 22.80 kg/m2 [facility] [place] [facility] Systolic blood 2021-05-22 17:03:00 163 mm[Hg] Univer sity of pressure [place] [facility] Diastolic blood 2021-05-22 17:03:00 76 mm[Hg] Unive rsity of pressure [facility] Heart rate 2021-05-22 17:03:00 55 /min [facility] [place] [facility] Body temperature 2021-05-22 17:03:00 36.17 Emily [facility] [place] [facility] Respiratory rate 2021-05-22 17:03:00 21 /min [facility] [place] [facility] Oxygen saturation in 2021-05-22 17:03:00 99 /min University of Arterial blood by [facility] Pulse oximetry Branch Body height 2021-05-20 15:59:00 172.7 cm [facility] [place] [facility] Body weight 2021-05-20 15:59:00 68 kg [facility] [place] [facility] BMI 2021-05-20 15:59:00 22.80 kg/m2 [facility] [place] [facility] Procedures Procedure Date / Time Performing Source Performed Clinician PHACOEMULSIFICATION OF 2021-05-22 Miguel Roberts [facility] CATARACT WITH INTRAOCULAR 18:25:00 [facility] LENS IMPLANT POCT GLUCOSE(AGE >30DAYS) 2021-05-22 Sandra Cunningham [facility] 17:22:00 [facility] [place] POCT GLUCOSE(AGE >30DAYS) 2021-05-22 Sandra Cunningham [facility] 17:22:00 [facility] POCT GLUCOSE (AUTOMATED) 2021-05-22 Miguel Roberts [facility] 17:15:00 [facility] POCT GLUCOSE (AUTOMATED) 2021-05-22 Miguel Roberts [facility] 17:15:00 Medical Branch PATIENT QUESTIONNAIRE 2021-05-22 Doctor Unassigned, [facility] 06:01:00 [place] [facility] ASSIGNMENT OF BENEFITS 2021-05-13 Doctor Unassigned, [facility] 16:40:49 [place] [facility] EXTERNAL PROVIDER RECORDS 2021-04-24 Doctor Unassigned, [facility] 05:01:00 [place] [facility] EXTERNAL PROVIDER RECORDS 2021-04-24 Doctor Unassigned, [facility] 05:01:00 [place] [facility] Encounters Start End Encounter Admission Attending Care Care Encounter Source Date/Time Date/Time Type Type Clinicians Facility Department ID 2021-06-05 Outpatient Gianni ROBERTS [facility] OPH [id number] Univers 16:30:41 [facility] 2021-06-16 2021-06-21 Inpatient U QUINTEN [facility] CAR [id number] [facility] 23:14:00 17:50:00 GWEN 2021-06-16 2021-06-16 Outpatient NAFISA [facility] BRAYAN [id number] [facility] 20:35:00 23:59:00 MOJGAN 2021-05-22 2021-05-22 Outpatient Gianni ROBERTS [facility] OPH [id number] Univers 10:48:00 13:33:00 MIGUEL paxton [facility] 2021-05-22 2021-05-22 [facility] Quinten [facility] [id number] Univers 10:48:00 13:33:00 Encounter Miguel QUINTEROS [id number] [facility] [id number] [id number] [facility] 071 Branch 2021-05-22 2021-05-22 Surgery Quinten [facility] [id number] Univers 12:12:00 12:51:00 Miguel QUINTEROS [id number] [facility] [id number] [id number] [facility] 020 Branch 2021-05-22 2021-05-22 Orders Doctor MATT [id number] Univers 00:00:00 00:00:00 Only Unassigned, DARSHAN [id number] [facility] [id number] Gustavo as [id number] [facility] 009 Branch 2021-05-21 2021-05-21 Outpatient R [facility] [id number] Univers 08:45:00 08:45:00 [id number] ity [facility] 2021-05-21 2021-05-21 Outpatient R [facility] [id number] Univers 08:45:00 08:45:00 ity [facility] 2021-05-20 2021-05-20 Outpatient R [facility] [id number] Univers 10:30:00 10:30:00 [id number] ity [facility] 2021-05-20 2021-05-20 Outpatient R QUINTEN [facility] [id number] Univers 10:30:00 10:30:00 MIGUEL [facility] 2021-05-20 2021-05-20 Laboratory Only, Adc Test [facility] [id number] Univers 09:25:46 09:40:46 Only Miguel Roberts [id number] 0 [place] of [id number] [id number] [facility] 353 Branch 2021-05-13 2021-05-13 Outpatient R QUINTEN [facility] [id number] Univers 11:45:00 11:45:00 MIGUEL paxton [facility] 2021-05-13 2021-05-13 Finisher Brush Pob, Adc Lab Main [facility] [id number] Univers 10:40:00 10:55:00 Visit QuintenMiguel 350.1.13.1 0 ity of [id number] PROFESS[place] [id number] Fl dical NAL 353 Branch [facility] 2021-05-13 2021-05-13 Orders Doctor MATT [id number] Univers 00:00:00 00:00:00 Only Unassigned, DARSHAN [id number] ity of [place] [facility] [id number] Gust[place] as [id number] [address] Results Test Description Test Time Test Comments Results Result Comments Source POCT Glucose 2021-05-22 17:22:00 Test Item Value Reference Range Interpretation Comme nts POCT Glu (age>30days) (test code = 3342) 135 mg/dL 70-110 A Lab Interpretation (test code = 97246-6) Abnormal [facility] [id number] 17:22:00 Test Item Value Reference Range Interpretation Comments POCT Glu (age>30days) (test code = 135 mg/dL 70-110 A 3342) Lab Interpretation (test code = Abnormal 13895-3) [facility] GLUCOSE (AUTOMATED)2021-05-22 17:18:13 Test Item Value Reference Range Interpretation Comments POCT GLU (test code = 2591158689) 135 mg/dL 70-110 H Lab Interpretation (test code = Abnormal 43166-5) [facility] GLUCOSE (AUTOMATED)2021-05-22 17:18:13 Test Item Value Reference Range Interpretation Comments POCT GLU (test code = 9520109412) 135 mg/dL 70-110 H Lab Interpretation (test code = Abnormal 52434-3) [facility] [place]
[2021-07-16] MEDS ORDERED: NITROGLYCERIN 0.4 MG/TAB SL ONE (11:13)
[2021-07-16] MEDS ORDERED: ALBUTEROL 2.5 MG/3 ML NEB SOL ONE ×2 (11:13→11:49)
[2021-07-16] MEDS ORDERED: FUROSEMIDE 20 MG/ 2ML VIAL ONE (11:13)
[2021-07-16 11:35] LABS: Absolute Lymphocytes (CBC) 0.7 K/uL (0.7-4.9); Hematocrit 34.7 % (39.6-49.0); Lymphocytes % 9.6 % (15.3-44.8); MPV 8.7 fL (7.6-11.3); RBC Red Blood Cell Count 3.95 M/uL (4.33-5.43)
[2021-07-16 11:37] LABS: Protime INR 1.17
[2021-07-16 11:59] LABS: Albumin 2.8 g/dL (3.4-5.0); Bilirubin Direct 0.2 mg/dL (0-0.2); Bilirubin Total 0.6 mg/dL (0.2-1.0); Magnesium 2.1 mg/dL (1.8-2.4); Potassium 5.3 mmol/L (3.5-5.1)
--- NOTE | 2021-07-16 12:28 | RAD REPORT ---
EXAM DESCRIPTION: RAD - Chest Single View - 07/16/2021 12:14 pm CLINICAL HISTORY: DYSPNEA Chest pain. COMPARISON: Chest Single View dated 07/11/2021; Chest Single View dated 07/08/2021; Chest Single View da lyle 06/16/2021; Chest Pa And Lat (2 Views) dated 02/25/2018 FINDINGS: Portable technique limits examination quality. The lungs are grossly clear. The heart is normal in size. No displaced fractures. IMPRESSION: No acute intrathoracic process suspected.
--- NOTE | 2021-07-16 13:38 | EDPHYS ---
Physician Documentation [facility] Name: Woodrow Mckeon Age: 86 yrs Sex: Male : 1935 Arrival Date: 07/16/2021 Time: 10:19 Bed 24 Private MD: Deo Lozano ED Physician Trae Posadas HPI: 07/16 10:49 This 86 yrs old Male presents to ER via Wheelchair with complaints of Breathing jr8 Difficulty. 10:49 This is an 86-year-old male patient that presented to the emergency room with jr8 complaints of increased shortness of breath at rest with dyspnea on exertion. Patient was recently released from the hospital for congestive heart failure exacerbation. Patient stated overall he had had mild improvement but continues to have new onset cough and now worsening shortness of breath that started at home. 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 Pump Press Operator noted that he was having increased difficulty breathing. Pump Press Operator called emergency room and would like us to reevaluate patient as he believes he is having acute failure once again. Would like us to try and transfer to [facility] so he can continue care up there.. 11:17 Severity of symptoms: At their worst the symptoms were moderate in the emergency jr8 department the symptoms are unchanged. The patient has experienced similar episodes in the past, a few times. The patient has been recently seen by a physician:. Historical: - Allergies: 10:37 No Known Allergies; ll1 - Home Meds: 13:13 aspirin 81 mg Oral chew 1 tab once daily [Active]; atorvastatin 80 mg Oral tab 1 tab eo2 once daily [Active]; carvedilol 3.125 mg Oral tab 1 tab 2 times per day [Active]; clopidogrel 75 mg Oral tab 1 tab once daily [Active]; doxazosin 4 mg Oral tab 1 tab once daily [Active]; Farxiga 5 mg Oral tab 1 tab once daily [Active]; finasteride 5 mg Oral tab 1 tab once daily [Active]; hydralazine 25 mg Oral tab three times a day [Active]; isosorbide dinitrate 10 mg Oral tab 1 tab 2 times per day [Active]; Novolin 70/30 InnoLet Insulin 100 unit/mL (70-30) Sub-Q inpn [Active]; - PMHx: 10:37 Gout; Hypertension; SBO; Hyperlipidemia; Diabetes - NIDDM; COPD; ll1 - PSHx: 10:37 bowel resection; skin cancer removed; ll1 - Immunization history:: Client reports receiving the 2nd dose of the Covid vaccine. - Social history:: Smoking status: Patient denies any tobacco usage or history of. ROS: 11:17 Eyes: Negative for injury, pain, redness, and discharge, ENT: Negative for injury, jr8 pain, and discharge, Neck: Negative for injury, pain, and swelling, Cardiovascular: Negative for chest pain, palpitations, and edema, Abdomen/GI: Negative for abdominal pain, nausea, vomiting, diarrhea, and constipation, Back: Negative for injury and pain, MS/Extremity: Negative for injury and deformity, Skin: Negative for injury, rash, and discoloration, Neuro: Negative for headache, weakness, numbness, tingling, and seizure. 11:17 Respiratory: Positive for dyspnea on exertion, orthopnea, shortness of breath. Exam: 11:17 Constitutional: This is a well developed, well nourished patient who is awake, alert, jr8 and in no acute distress. Cardiovascular: Regular rate and rhythm with a normal S1 and S2. No gallops, murmurs, or rubs. Normal PMI, no JVD. No pulse deficits. Abdomen/GI: Soft, non-tender, with normal bowel sounds. No distension or tympany. No guarding or rebound. No evidence of tenderness throughout. Back: No spinal tenderness. No costovertebral tenderness. Full range of motion. Skin: Warm, dry with normal turgor. Normal color with no rashes, no lesions, and no evidence of cellulitis. MS/ Extremity: Pulses equal, no cyanosis. Neurovascular intact. Full, normal range of motion. Neuro: Awake and alert, GCS 15, oriented to person, place, time, and situation. Cranial nerves II-XII grossly intact. Motor strength 5/5 in all extremities. Sensory grossly intact. 11:17 Respiratory: the patient does not display signs of respiratory distress, Respirations: tachypnea, that is mild, Breath sounds: rales, that are mild, are located in both bases, wheezing: expiratory that is moderate, is heard diffusely. Vital Signs: 10:35 BP 192 / 95; Pulse 79; Resp 22; Temp 98.7; Pulse Ox 97% ; Weight 64.41 kg; Height 5 ft. ll1 8 in. (172.72 cm); Pain 0/10; 11:45 BP 205 / 87; Pulse 83; Resp 24; Temp 98.9; Pulse Ox 96% ; Pain 0/10; eo2 12:00 BP 153 / 90; Pulse 81; Resp 22; Pulse Ox 99% ; eo2 13:00 BP 176 / 89; Pulse 74; Resp 20; Pulse Ox 100% on R/A; eo2 13:11 BP 176 / 89; Pulse 89; Resp 20; Pulse Ox 98% on R/A; ss 14:00 BP 175 / 90; Pulse 76; Resp 16; Pulse Ox 95% ; eo2 14:15 BP 168 / 85; Pulse 72; Resp 18; Pulse Ox 95% ; Pain 0/10; eo2 15:43 BP 165 / 82; Pulse 71; Resp 18; Temp 98.6; Pulse Ox 94% ; jh5 10:35 Body Mass Index 21.59 (64.41 kg, 172.72 cm) ll1 MDM: 10:57 Patient medically screened. jr8 13:36 Data reviewed: vital signs, nurses notes, lab test result(s), EKG, radiologic studies, jr8 plain films. Data interpreted: Pulse oximetry: on room air is 98 %. Interpretation: normal. Counseling: I had a detailed discussion with the patient and/or guardian regarding: the historical points, exam findings, and any diagnostic results supporting the discharge/admit diagnosis, lab results, radiology results, the need to transfer to another facility, for higher level of care. 07/16 10:43 Order name: Basic Metabolic Panel; Complete Time: 12:19 07/16 10:43 Order name: CBC with Diff; Complete Time: 11:52 07/16 10:43 Order name: LFT's; Complete Time: 12:19 07/16 10:43 Order name: Magnesium; Complete Time: 12:19 07/16 10:43 Order name: NT PRO-BNP; Complete Time: 12:19 07/16 10:43 Order name: PT-INR; Complete Time: 11:39 07/16 10:43 Order name: XRAY Chest (1 view); Complete Time: 12:31 07/16 13:04 Order name: COVID-19 SARS RT PCR (Document "Date of Onset" if Symptomatic) bd 07/16 13:04 Order name: SARS-COV-2 RT PCR; Complete Time: 14:29 EDMS 07/16 13:29 Order name: Troponin High Sensitivity; Complete Time: 15:03 8 07/16 10:43 Order name: Cardiac monitoring; Complete Time: 11:58 07/16 10:43 Order name: EKG - Nurse/Tech; Complete Time: 11:35 07/16 10:43 Order name: IV Saline Lock; Complete Time: 11:34 07/16 10:43 Order name: Labs collected and sent; Complete Time: 11:34 07/16 10:43 Order name: O2 Per Protocol; Complete Time: 11:58 07/16 10:43 Order name: O2 Sat Monitoring; Complete Time: 11:58 07/16 14:08 Order name: Labs - recollect needed: recollect green top; Complete Time: 14:56 bd Administered Medications: 11:50 Drug: Lasix (furosemide) 60 mg Route: IVP; Site: right antecubital; eo2 13:14 Follow up: Response: No adverse reaction eo2 11:56 Drug: Nitroglycerin 0.4 mg Route: Sublingual; eo2 14:56 Follow up: Response: No adverse reaction eo2 11:57 Drug: Albuterol 2.5 mg Route: Inhalation; eo2 13:14 Follow up: Response: No adverse reaction; Wheezing diminished eo2 11:57 Drug: Albuterol 2.5 mg Route: Inhalation; eo2 11:57 Drug: Albuterol 2.5 mg Route: Inhalation; eo2 Disposition: 17:11 Co-signature as Attending Physician, Trae Posadas MD I agree with the assessment and rn plan of care. Attestation: The patient's history, exam findings, diagnostics, and a summary of any interventions or procedures was reviewed in detail with Matt SALMON. Disposition Summary: 07/16/21 13:37 Transfer Ordered Transfer Location: [facility] jr8 Reason: Higher level of care jr8 Condition: Stable jr8 Problem: new jr8 Symptoms: have improved jr8 Accepting Physician: [facility](07/16/21 17:01) ss Diagnosis - Acute diastolic (congestive) heart failure jr8 - Acute kidney failure, unspecified jr8 Forms: - Medication Reconciliation Form jr8 - SBAR form jr8 Signatures: Dispatcher [employer] EDMirian Navarro Roman, MD MD rn Smirch, Shelby, RN RN ss Matt Horn PA PA jr8 Sony Tobin RN RN ll1 Julia Balderas RN RN eo2 Corrections: (The following items were deleted from the chart) 17: 13:37 [facility] jr8 ss
--- NOTE | 2021-07-16 13:38 | ER ---
Nurse's Notes [facility] Name: Woodrow Mckeon Age: 86 yrs Sex: Male : 1935 Arrival Date: 07/16/2021 Time: 10:19 Bed 24 Private MD: Deo Lozano Diagnosis: Acute diastolic (congestive) heart failure;Acute kidney failure, unspecified Presentation: 07/16 10:35 Chief complaint: Patient states: SOB since getting out of the hospital yesterday. ll1 States his heart doctor sent him here for eval, then transfer to [facility]. Coronavirus screen: Vaccine status: Patient reports receiving the 2nd dose of the covid vaccine. Client denies travel out of the [place] in the last 14 days. congestion, cough unrelated to allergies, difficulty breathing, shortness of breath, Client presents with at least one sign or symptom that may indicate coronavirus-19. Standard/surgical mask placed on the client. Ebola Screen: Patient denies travel to an Ebola-affected area in the 21 days before illness onset. Initial Sepsis Screen: Does the patient meet any 2 criteria? No. Patient's initial sepsis screen is negative. Does the patient have a suspected source of infection? Yes: Productive cough/pneumonia. Risk Assessment: Do you want to hurt yourself or someone else? Patient reports no desire to harm self or others. Onset of symptoms was July 15, 2021. 10:35 Method Of Arrival: Wheelchair ll1 10:35 Acuity: KENZIE 3 ll1 Triage Assessment: 13:12 General: Appears comfortable. Respiratory: Reports shortness of breath Onset: The eo2 symptoms/episode began/occurred gradually, the patient has severe shortness of breath. Historical: - Allergies: 10:37 No Known Allergies; ll1 - Home Meds: 13:13 aspirin 81 mg Oral chew 1 tab once daily [Active]; atorvastatin 80 mg Oral tab 1 tab eo2 once daily [Active]; carvedilol 3.125 mg Oral tab 1 tab 2 times per day [Active]; clopidogrel 75 mg Oral tab 1 tab once daily [Active]; doxazosin 4 mg Oral tab 1 tab once daily [Active]; Farxiga 5 mg Oral tab 1 tab once daily [Active]; finasteride 5 mg Oral tab 1 tab once daily [Active]; hydralazine 25 mg Oral tab three times a day [Active]; isosorbide dinitrate 10 mg Oral tab 1 tab 2 times per day [Active]; Novolin 70/30 InnoLet Insulin 100 unit/mL (70-30) Sub-Q inpn [Active]; - PMHx: 10:37 Gout; Hypertension; SBO; Hyperlipidemia; Diabetes - NIDDM; COPD; ll1 - PSHx: 10:37 bowel resection; skin cancer removed; ll1 - Immunization history:: Client reports receiving the 2nd dose of the Covid vaccine. - Social history:: Smoking status: Patient denies any tobacco usage or history of. Screenin:50 Abuse screen: Denies threats or abuse. Denies injuries from another. Nutritional eo2 screening: No deficits noted. Tuberculosis screening: No symptoms or risk factors identified. Fall Risk No fall in past 12 months (0 pts). Assessment: 11:50 General: Appears comfortable, Behavior is calm, cooperative. Pain: Denies pain. Neuro: eo2 Level of Consciousness is awake, alert, obeys commands, Oriented to person, place, time, Denies dizziness, headache. Cardiovascular: Reports shortness of breath, Denies chest pain, Capillary refill < 3 seconds Rhythm is sinus rhythm. Respiratory: Airway is patent Respiratory effort is labored, Respiratory pattern is symmetrical, Breath sounds with rhonchi Breath sounds with wheezes bilaterally. GI: Abdomen is round Bowel sounds present X 4 quads. Musculoskeletal: Reports weakness in generalized. 16:02 Reassessment: Pt is resting well on stretcher at this time, pt in NAD, Airway intact, jh5 speech is clear, RR even and unlabored, and pt denies complaints at this time. Waiting for transport to transfer pt to another facility. Pt will continue to be monitored in ED at this time. Hand off given to advanced solutions architect. Vital Signs: 10:35 BP 192 / 95; Pulse 79; Resp 22; Temp 98.7; Pulse Ox 97% ; Weight 64.41 kg; Height 5 ft. ll1 8 in. (172.72 cm); Pain 0/10; 11:45 BP 205 / 87; Pulse 83; Resp 24; Temp 98.9; Pulse Ox 96% ; Pain 0/10; eo2 12:00 BP 153 / 90; Pulse 81; Resp 22; Pulse Ox 99% ; eo2 13:00 BP 176 / 89; Pulse 74; Resp 20; Pulse Ox 100% on R/A; eo2 13:11 BP 176 / 89; Pulse 89; Resp 20; Pulse Ox 98% on R/A; ss 14:00 BP 175 / 90; Pulse 76; Resp 16; Pulse Ox 95% ; eo2 14:15 BP 168 / 85; Pulse 72; Resp 18; Pulse Ox 95% ; Pain 0/10; eo2 15:43 BP 165 / 82; Pulse 71; Resp 18; Temp 98.6; Pulse Ox 94% ; jh5 10:35 Body Mass Index 21.59 (64.41 kg, 172.72 cm) ll1 Vitals: 14:39 Cardiac Rhythm Assessment Regular Sinus rhythm. eo2 ED Course: 10:19 Patient arrived in ED. ds1 10:19 Deo Lzoano MD is Private Physician. ds1 10:37 Triage completed. ll1 10:38 Arm band placed on. ll1 10:42 Matt Horn PA is PHCP. jr8 10:43 Trae Posadas MD is Attending Physician. jr8 11:05 Julia Balderas RN is Primary Nurse. eo2 11:22 Initial lab(s) drawn, by me, sent to lab. Inserted saline lock: 20 gauge in right kj1 antecubital area, using aseptic technique. Blood collected. 11:50 Patient has correct armband on for positive identification. hospital monitor on. Pulse eo2 ox on. NIBP on. Door closed. Noise minimized. Warm blanket given. 11:50 No provider procedures requiring assistance completed. eo2 12:14 XRAY Chest (1 view) In Process Unspecified. EDMS 13:14 COVID-19 SARS RT PCR (Document "Date of Onset" if Symptomatic) Sent. eo2 13:23 initiated transfer to [facility]. bd 13:48 Initial lab(s) drawn, by me, sent to lab. tm3 14:35 Lab(s) recollected, by me, sent to lab. tm3 14:55 Report given to Lewis DICKEY in [facility]. eo2 15:11 Report given to Sanjuana DICKEY. eo2 17:00 Patient transferred, IV remains in place. ss Administered Medications: 11:50 Drug: Lasix (furosemide) 60 mg Route: IVP; Site: right antecubital; eo2 13:14 Follow up: Response: No adverse reaction eo2 11:56 Drug: Nitroglycerin 0.4 mg Route: Sublingual; eo2 14:56 Follow up: Response: No adverse reaction eo2 11:57 Drug: Albuterol 2.5 mg Route: Inhalation; eo2 13:14 Follow up: Response: No adverse reaction; Wheezing diminished eo2 11:57 Drug: Albuterol 2.5 mg Route: Inhalation; eo2 11:57 Drug: Albuterol 2.5 mg Route: Inhalation; eo2 Outcome: 13:37 ER care complete, transfer ordered by MD. schwarz 17:00 Transferred by ground EMS to [facility] 17:00 Condition: stable 17:00 Instructed on the need for transfer. 17:01 Patient left the ED. Signatures: Dispatcher [employer] EDMS Mirian Torres Christopher Hoff tm3 Adriana Randhawa ds1 Katie Santos RN RN Matt Horn PA PA jr8 Anne Nuñez1 Sony Tobin RN RN ll1 Sanjuana Newby RN RN jh5 Julia Balderas RN RN eo2 Corrections: (The following items were deleted from the chart) 16:32 16:31 faxed chart to [facility]
[2021-07-16 17:46] VITALS: BP 165/82; TEMP 98.6; O2SAT 94
--- NOTE | 2021-07-17 07:48 | EKG ---
Test Date: 2021-07-16 Test Time: 11:53:43 [place]: FLORINDA MEASUREMENT RESULTS: Intervals: Rate: 82 MS: 190 QRSD: 98 QT: 416 QTc: 486 [place]: P: 71 MS: 190 QRS: -40 T: -85 INTERPRETIVE STATEMENTS: Sinus rhythm with fusion complexes Left axis deviation T wave abnormality, consider inferior ischemia Prolonged QT Abnormal ECG Compared to ECG 07/08/2021 19:59:20 Fusion complex(es) now present T-wave abnormality now present Possible ischemia now present Prolonged QT interval now present Myocardial infarct finding no longer present Electronically Signed On 07-17-21 07:45:45 PIE MAKER by Magdi Ayoub
== END 2021-07-16 17:01 | disposition short-term general hospital (02) ==
LOC: ER 10:17
DX: I50.31 Acute diastolic (congestive) heart failure (principal); N17.9 Acute kidney failure, unspecified; Z20.822 Contact with and (suspected) exposure to COVID-19; I10 Essential (primary) hypertension; E11.9 Type 2 diabetes mellitus without complications; Z79.4 Long term (current) use of insulin; Z79.82 Long term (current) use of aspirin
CPT/HCPCS: 93005; 85025; 80048; 36415; 83735; 85610; 80076; 84484; 83880; 71045; 96374; 99285; U0003; J1940